=== PATIENT | male | born 1955 | race Caucasian/White ===

== ENCOUNTER → 2016-07-23 | Outpatient (CLI) | payer BC ==
[~2016-07-23] MED LIST: ASPI81TA28 PO; CRS10 PO; FLUO20CA35 PO; GLC500 PO; INSDGI SC; LISI-461 PO; MCR5 PO; MISC1CAP60 PO; MULTTAB58 PO; OFLO0.3S OPL; ZNTT/150 PO
[2016-07-23 14:22] LABS: ALT/SGPT 78 U/L (12-78); AST/SGOT 32 U/L (15-37); BLOOD UREA NITROGEN 25 mg/dl (7-18); BUN/CREATININE RATIO 19.1 (10-20); CALCIUM 9.7 mg/dl (8.5-10.1); CARBON DIOXIDE 22 mmol/L (21-32); CHLORIDE 107 mmol/L (98-107); CHOLESTEROL 168 mg/dl (0-200); GLUCOSE 148 mg/dl (70-99); POTASSIUM 4.1 mmol/L (3.5-5.1); SODIUM 141 mmol/L (136-145); TRIGLYCERIDES 345 mg/dl (0-150); VERY LOW DENSITY LIPOPROT CALC 69 mg/dl
[2016-07-23 14:24] LABS: ALB/GLOB RATIO 1.1 (0.9-2); ALKALINE PHOSPHATASE 60 U/L (45-117); CHOLESTEROL/HDL RATIO 4.8; HDL CHOLESTEROL 35 mg/dl
[2016-07-23 14:35] LABS: ESTIMATED AVERAGE GLUCOSE 163 mg/dl; HA1C FLAG Normal (Normal)
== END | disposition home or self-care (01) ==
LOC: C.LABSPEC 13:33
PROVIDERS: ATTEND Internal Medicine
DX: E11.65 Type 2 diabetes mellitus with hyperglycemia (principal); I10 Essential (primary) hypertension; E78.5 Hyperlipidemia, unspecified; E66.09 Other obesity due to excess calories

== ENCOUNTER → 2016-11-15 | Outpatient (CLI) | payer BC | END | disposition home or self-care (01) | LOC: C.LAB 13:34 | PROVIDERS: ATTEND Urology | DX: R97.20 Elevated prostate specific antigen [PSA] (principal); N40.0 Benign prostatic hyperplasia without lower urinary tract symptoms ==

== ENCOUNTER → 2016-11-25 | Outpatient (CLI) | payer BC ==
[2016-11-25 14:07] LABS: ESTIMATED AVERAGE GLUCOSE 148 mg/dl; HA1C FLAG Normal (Normal)
[2016-11-25 14:20] LABS: BLOOD UREA NITROGEN 23 mg/dl (7-18); BUN/CREATININE RATIO 17.4 (10-20); CARBON DIOXIDE 24 mmol/L (21-32); CHLORIDE 106 mmol/L (98-107); CHOLESTEROL 148 mg/dl (0-200); CHOLESTEROL/HDL RATIO 4.6; GLUCOSE 159 mg/dl (70-99); HDL CHOLESTEROL 32 mg/dl; SODIUM 140 mmol/L (136-145); TRIGLYCERIDES 264 mg/dl (0-150); VERY LOW DENSITY LIPOPROT CALC 53 mg/dl
[2016-11-25 15:07] LABS: CALCIUM 9.7 mg/dl (8.5-10.1)
== END | disposition home or self-care (01) ==
LOC: C.LABSPEC 12:33
PROVIDERS: ATTEND Internal Medicine
DX: E11.65 Type 2 diabetes mellitus with hyperglycemia (principal); I10 Essential (primary) hypertension; E78.5 Hyperlipidemia, unspecified

== ENCOUNTER → 2017-03-31 | Outpatient (CLI) | payer BC ==
[2017-03-31 13:27] LABS: ESTIMATED AVERAGE GLUCOSE 140 mg/dl; HA1C FLAG Normal (Normal)
[2017-03-31 13:45] LABS: ALT/SGPT 38 U/L (12-78); AST/SGOT 21 U/L (15-37); BLOOD UREA NITROGEN 31 mg/dl (7-18); BUN/CREATININE RATIO 22.2 (10-20); CALCIUM 10.2 mg/dl (8.5-10.1); CARBON DIOXIDE 23 mmol/L (21-32); CHLORIDE 109 mmol/L (98-107); CHOLESTEROL 142 mg/dl (0-200); GLUCOSE 70 mg/dl (70-99); POTASSIUM 3.7 mmol/L (3.5-5.1); SODIUM 142 mmol/L (136-145)
[2017-03-31 13:48] LABS: ALKALINE PHOSPHATASE 65 U/L (45-117); CHOLESTEROL/HDL RATIO 4.3; HDL CHOLESTEROL 33 mg/dl; TRIGLYCERIDES 253 mg/dl (0-150); VERY LOW DENSITY LIPOPROT CALC 51 mg/dl
== END | disposition home or self-care (01) ==
LOC: C.LABSPEC 12:19
PROVIDERS: ATTEND Internal Medicine
DX: Z00.00 Encounter for general adult medical examination without abnormal findings (principal); E11.65 Type 2 diabetes mellitus with hyperglycemia; E66.09 Other obesity due to excess calories; I10 Essential (primary) hypertension; E78.5 Hyperlipidemia, unspecified

== ENCOUNTER → 2017-04-30 | Outpatient (CLI) | payer BC | END | disposition home or self-care (01) | LOC: C.LABSPEC 12:29 | PROVIDERS: ATTEND Internal Medicine | DX: Z12.11 Encounter for screening for malignant neoplasm of colon (principal) ==

== ENCOUNTER → 2017-08-01 | Outpatient (CLI) | payer BC ==
[2017-08-01 14:14] LABS: BLOOD UREA NITROGEN 27 mg/dl (7-18); CALCIUM 9.7 mg/dl (8.5-10.1); CARBON DIOXIDE 25 mmol/L (21-32); CHOLESTEROL 144 mg/dl (0-200); CREATININE 1.36 mg/dl (0.60-1.40); GLUCOSE 65 mg/dl (70-99); POTASSIUM 3.7 mmol/L (3.5-5.1); SODIUM 138 mmol/L (136-145)
[2017-08-01 14:17] LABS: LDL CHOLESTEROL (DIRECT) 92 mg/dl
[2017-08-01 14:24] LABS: CREATININE RANDOM URINE 71.9 mg/dl
[2017-08-01 14:27] LABS: HEMOGLOBIN A1C 6.3 % (4.5-5.6)
== END | disposition home or self-care (01) ==
LOC: C.LABSPEC 13:20
PROVIDERS: ATTEND Internal Medicine
DX: E78.5 Hyperlipidemia, unspecified (principal); E11.9 Type 2 diabetes mellitus without complications; I10 Essential (primary) hypertension

== ENCOUNTER → 2018-02-11 | Outpatient (CLI) | payer BC ==
[~2018-02-11] MED LIST changes: +PERFLUTREN LIPID MICROSPHERE (DEFINITY) IV ONE; +RANI150T85 PO; -ZNTT/150 PO
--- NOTE | 2018-02-12 20:27 | EXERCISE STRESS ECHO ---
*NOTICE TO RECEIVING CONSTITUTION PARTY AGENCY This information is strictly Confidential and protected under [place] law. [place] law prohibits you from making any further disclosure of this information unless further disclosure is expressly permitted by the written consent of the person to whom it pertains or is authorized by law. A general authorization for the release of medical or other information is not sufficient for this purpose. Hospital accepts no responsibility if the information is made available to any other person, INCLUDING THE PATIENT. Interpretation Summary * Name: VASILE DAVIDSON Study Date: 02/11/2018 09:27 AM BP: 136/71 mmHg * Patient Location: [facility] HR: 80 * : 1955 (M/d/yyyy) Gender: Male Height: 67 in * Age: 62 yrs Ethnicity: [place] Weight: 212 lb * Ordering Physician: Rigoberto Damon * Referring Physician: Rigoberto Damon * Performed By: Cha Mckeon RCS * * Reason For Study: ABNORMAL EKG / LEFT SIDED CHEST PAIN * BSA: 2.1 m2 * -- Conclusions -- * Stress Echo: * 1. Poor quality stress imaging. There were no new definite wall motion abnormalities, but cannot rule out ischemia due to image quality. * 2. Abnormal exercise stress ECG at 85% MPHR with [address]-depression in leads II and aVF. * 3. Appropriate blood pressure response to exercise. * 4. No arrhythmia. * 5. There was no reported chest pain. * 6. Fair exercise tolerance. * Echo: * 1. Grossly normal left ventricular size with grossly normal systolic function. Estimated EF 55-60%. Cannot rule out wall motion abnormalities, but no visualized wall motion abnormalities noted. No significant left ventricular hypertrophy. No significant diastolic dysfunction suggested. * 2. No significant valvular abnormalities visualized. * 3. Technically difficult study with poor image quality. Procedure Details * ECHOEX, CPT #[id number] * ECHO COLOR FLOW, CPT #[id number] * ECHO DOPPLER, CPT #[id number] * The study was technically difficult with many images being suboptimal in quality. * A contrast injection of Definity was performed to improve assessment of LV function. * Contrast was injected into an intravenous site in the left arm. * One vial of Definity ultrasound contrast was diluted in normal saline to a total volume of 10 ml. A total of '5' ml of solution was administered during imaging. * Lot # [id number] of Definity utilized for procedure. * Expiration date DEC 23. * The attending nurse who injected the contrast agent was MAXIME Lugo RN. Left Ventricle * Grossly normal left ventricular size with grossly normal systolic function. Estimated EF 55-60%. Cannot rule out wall motion abnormalities, but no visualized wall motion abnormalities noted. No significant left ventricular hypertrophy. No significant diastolic dysfunction suggested. * There are no new wall motion abnormalities in visualized delgado following exercise. LV systolic function did appear to improve following exercise. Right Ventricle * The right ventricle is normal in size and function. * The right ventricular systolic function is normal as assessed by tricuspid annular plane systolic excursion (TAPSE) (normal >1.5 cm). Atria * The left atrial size is normal. * Right atrial size is normal. Mitral Valve * The mitral valve is grossly normal. * There is no mitral valve stenosis. * Significant mitral regurgitation is absent. Tricuspid Valve * The tricuspid valve is not well visualized. * There is no tricuspid stenosis. * Significant tricuspid regurgitation is absent. Aortic Valve * The aortic valve is not well visualized. * No hemodynamically significant valvular aortic stenosis. * There is no significant aortic regurgitation. Pulmonic Valve * The pulmonary valve is inadequately visualized, but the Doppler data is adequate for interpretation. * There is no significant pulmonary regurgitation. Great Vessels * The aortic root is normal size. * Ascending aorta of normal dimension * IVC normal in size and inspiratory collapse. Normal hepatic venous flow pattern. Pericardium * There is no pericardial effusion. Stress Parameters * NSR 84 bpm. PVC. * [address] depression in leads II and aVF noted in recovery. No arrhythmia. * The stress portion of this study was personally supervised by the undersigned interpreting physician. * Rest heart rate was '80' BPM. * Rest blood pressure was '136/71' * Maximum heart rate achieved was 134 bpm. * Maximum heart rate was 85 % of maximum age-predicted heart rate. * Maximum blood pressure was '161/61' * Total exercise time was '05:59' * Maximum exercise MET level achieved was '7.00' METS * Maximum treadmill speed was '2.50' miles per hour. * Maximum treadmill elevation was '12.00'% grade. MMode 2D Measurements and Calculations IVSd 1.1 cm LVIDd 5.0 cm LVPWd 0.91 cm IVS/LVPW 1.2 EDV(Teich) 116.4 ml EDV(cubed) 122.5 ml LV mass(C)d 183.5 grams LV mass(C)dI 88.5 grams/m\S\2 Ao root diam 3.6 cm Ao root area 10.2 cm\S\2 LA dimension 3.7 cm asc Aorta Diam 3.2 cm LA/Ao 1.0 Doppler Measurements and Calculations MV E max paula 56.5 cm/sec MV A max paula 51.7 cm/sec MV E/A 1.1 MV P1/2t max paula 72.5 cm/sec MV P1/2t 47.2 msec MVA(P1/2t) 4.7 cm\S\2 MV dec slope 449.5 cm/sec\S\2 MV dec time 0.17 sec Ao V2 max 94.0 cm/sec Ao max PG 3.5 mmHg Ao max PG (full) 0.22 mmHg LV V1 max PG 3.3 mmHg LV V1 max 91.1 cm/sec PA V2 max 99.2 cm/sec PA max PG 3.9 mmHg
== END | disposition home or self-care (01) ==
LOC: C.CPL 09:37
PROVIDERS: ATTEND Internal Medicine
DX: R07.9 Chest pain, unspecified (principal); R94.31 Abnormal electrocardiogram [ECG] [EKG]

== ENCOUNTER → 2018-02-17 | Outpatient (CLI) | payer BC ==
[~2018-02-17] MED LIST changes: +HMLI7525 SC; +METO25TA4 PO; +NTRGSL4 SL; +OMEG10007 PO; -PERFLUTREN LIPID MICROSPHERE (DEFINITY) IV ONE; +ROSU40TA19 PO; +SILD1TAB11; +TADA10TA PO
[2018-02-17 14:45] LABS: BASO % 0.3 %; BASO ABS # 0.02 K/uL (0-0.2); EOS % 3.8 %; EOS ABS # 0.28 K/uL (0-0.5); HEMATOCRIT 41.8 % (42-52); HEMOGLOBIN 14.8 g/dL (14.0-18.0); IG# 0.02 K/uL (0.00-0.02); LYMPH ABS # 1.93 K/uL (1.2-3.4); MEAN CELL VOLUME 91.7 fL (80-100); MEAN CORPUSCULAR HEMOGLOBIN 32.5 pg (25-34); MEAN CORPUSCULAR HGB CONC 35.4 g/dl (32-36); MEAN PLATELET VOLUME 10.1 fL (7.4-10.4); MONO ABS # 0.67 K/uL (0.11-0.59); NEUT % 60.6 %; NEUT ABS # 4.51 K/uL (1.4-6.5); PLATELET COUNT 187 K/uL (130-400); RED CELL DISTRIBUTION WIDTH CV 13.2 % (11.5-14.5); RED CELL DISTRIBUTION WIDTH SD 43.7 fL (36.4-46.3); WHITE BLOOD COUNT 7.43 K/uL (4.8-10.8)
[2018-02-17 14:54] LABS: PTT PATIENT 26.8 SECONDS (21.0-31.0)
[2018-02-17 15:12] LABS: BLOOD UREA NITROGEN 23 mg/dl (7-18); CALCIUM 9.3 mg/dl (8.5-10.1); CARBON DIOXIDE 24 mmol/L (21-32); CREATININE 1.28 mg/dl (0.60-1.40); GLUCOSE 199 mg/dl (70-99); SODIUM 139 mmol/L (136-145)
== END | disposition home or self-care (01) ==
LOC: C.LAB1850 13:33
PROVIDERS: ATTEND Internal Medicine Interventional Cardiology
DX: I10 Essential (primary) hypertension (principal); E78.5 Hyperlipidemia, unspecified

== ENCOUNTER 2019-03-10 12:28 | Inpatient (IN) ==
--- NOTE | 2019-03-10 13:14 | XRay Report ---
XR chest 1V portable HISTORY: 63 years-old Male Sepsis acute sepsis COMPARISON: Chest radiograph 03/01/2019 TECHNIQUE: Portable AP view of the chest FINDINGS: Cardiac silhouette is enlarged, unchanged. Prior median sternotomy. Chronic left basilar opacities demonds ggest atelectasis/scarring. There are new patchy airspace opacities of the medial right lung base. Mi ld blunting of the costophrenic angles. No pneumothorax or overt pulmonary edema. Degenerative change s of the shoulders and spine. IMPRESSION: 1. Alveolar opacities of the medial right lung base are suspicious for pneumonia in the appropriate c linical setting. 2. Cardiomegaly without overt pulmonary edema. The above report was generated using voice recognition software. It may contain grammatical, syntax o r spelling errors. Electronically signed by: Remigio Snow M.D. 03/10/2019 1:13 PM
[2019-03-10] MEDS ORDERED: cefTRIAXone SODIUM 2,000 MG/70 ML BAG IV STA (13:24)
[2019-03-10] MEDS ORDERED: SODIUM CHLORIDE 0.9% 1000ML 1,000 ML IV ONE (13:24)
[2019-03-10 13:42] LABS: Basophils # (auto) 0.02 K/uL (0-0.2); Basophils % (auto) 0.2 %; Eosinophils # (auto) 0.37 K/uL (0-0.5); Hematocrit (blood only) 41.6 % (42-52); Immature Granulocytes # (auto) 0.02 K/uL (0.00-0.02); Immature Granulocytes % (auto) 0.2 %; Lymphocytes # (auto) 1.43 K/uL (1.2-3.4); Lymphocytes % (auto) 15.4 %; Mean Corpuscular Hgb Conc 36.1 g/dL (32-36); Mean Corpuscular Volume 91.8 fL (80-100); Mean Platelet Volume 9.3 fL (7.4-10.4); Monocytes # (auto) 1.14 K/uL (0.11-0.59); Monocytes % (auto) 12.3 %; Neutrophils # (auto) 6.31 K/uL (1.4-6.5); Neutrophils % (auto) 67.9 %; Platelet Count 219 K/uL (130-400); RDW Coefficient of Variation 13.4 % (11.5-14.5); RDW Standard Deviation 44.5 fL (36.4-46.3); Red Blood Count 4.53 M/uL (4.7-6.1); White Blood Count 9.29 K/uL (4.8-10.8)
[2019-03-10 13:53] LABS: INR 1.1 (0.9-1.1); Partial Thromboplastin Ratio 1.1; Partial Thromboplastin Time 28.9 Seconds (21.0-31.0); Prothrombin Time 10.9 Seconds (9.0-12.0)
[2019-03-10 14:11] LABS: Albumin Level 3.1 gm/dl (3.4-5.0); BUN Creatinine Ratio 23.2 (10-20); C Reactive Protein 15.4 mg/dl (0-0.29); Calcium 9.3 mg/dl (8.5-10.1); Creatinine Clr Calc Pharmacy 53.4 ml/min; Est GFR (African American) 55.8; Est GFR (Non-African American) 48.2; Magnesium 2.4 mg/dl (1.8-2.4)
[2019-03-10 14:13] LABS: Albumin Globulin Ratio 0.6 (0.9-2); Bilirubin,Total 0.5 mg/dl (0.2-1); Globulin 4.9 gm/dl (2.5-4.0)
[2019-03-10] MEDS ORDERED: ACETAMINOPHEN 500 MG TAB PO STA (15:47)
[2019-03-10 16:01] LABS: Appearance Urine Clear (Clear); Bacteria Urine Automated Negative (Negative); Bilirubin Urine Negative (Negative); Blood Urine 1+ (Negative); Color Urine Yellow; Glucose Urine UA Negative (Negative); Ketones Urine Negative (Negative); Leukocyte Esterase Urine Negative (Negative); Nitrite Urine Negative (Negative); Protein Urine 1+ (Negative); RBC Urine Automated 0-4 /hpf (0-4); Specific Gravity Urine 1.018 (1.000-1.030); Urobilinogen Urine Negative (Negative)
--- NOTE | 2019-03-10 17:34 | Emergency Department Note ---
Entered by Sal Dumont acting as a scribe for History of Present Illness General Chief complaint: Referred by Doctor Stated complaint: TESTS DONE LAST NIGHT TOLD TO COME BACK BY DOC Source: patient History of Present Illness Onset (ago): day(s) Location: left and right Pain Consistency: + other (episode) Quality: + other (abnormalities in blood cultures and urine sample obtained by the patient's PCP) Associated symptoms: + cough (slight), + fever/chills and + other (+shakes; +sweats; +diarrhea; -leg swelling/pain; -abdominal pain); no rash The patient is a 63 year old male who presents to the Emergency Room with complaints of an episode of abnormalities in blood cultures and urine sample obtained by the patient's PCP - Dr. Zapata. The patient states the tests were ordered because the patient has been experiencing shakes, sweats, and a fever over the last 5 days. The patient states his fever was around 101.7 over the weekend, and the patient notes his temperature was around 100 when visiting his doctor yesterday. The patient also notes of a slight cough and diarrhea. The patient states his last bowel movement was today, and he notes it was loose. The patient denies a rash, recent travel, cut on legs, leg swelling, or abdominal pain. The patient denies having dental work done recently. The patient states he took 2 Tylenol this morning for the fever. The patient has a right eyelid droop that the patient states is a result from a stroke that he had on February 14. The patient notes history of diabetes, lung cancer, and quadruple bypass surgery. The patient denies being allergic to antibiotics. The patient notes having a hernia, but he states it has not been acting up. Home Medications Home Medications Medication Instructions Recorded Confirmed Type fluoxetine 10 mg PO QAM #0 01/19/06 03/10/19 History ranitidine HCl [Zantac] 150 mg PO BID #0 01/19/06 03/10/19 History aspirin 81 mg PO QAM #0 08/08/14 03/10/19 History lisinopril 10 mg PO QAM #0 08/08/14 03/10/19 History multivitamin 1 tab PO QAM #0 tab 08/08/14 03/10/19 History insulin lispro protamin-lispro 60 unit SUBCUT BID #0 vial 02/20/18 03/10/19 History [Humalog Mix 75-25 KwikPen] acetaminophen 1,000 mg PO Q6H PRN 03/01/19 03/10/19 History albuterol sulfate [ProAir HFA] 2 puff INHALATION QID PRN 03/01/19 03/10/19 History budesonide 2 ml IRRIGATION DIRECTED 03/01/19 03/10/19 History clopidogrel 75 mg PO DAILY 03/01/19 03/10/19 History glenn (Zingiber officinalis) 250 mg PO DAILY 03/01/19 03/10/19 History lorazepam 0.5 mg PO DAILY PRN 03/01/19 03/10/19 History losartan 25 mg PO DAILY 03/01/19 03/10/19 History metoprolol tartrate 25 mg PO BID 03/01/19 03/10/19 History nitroglycerin [Nitrostat] 0.4 mg SUBLINGUAL UD PRN 03/01/19 03/10/19 History rosuvastatin 40 mg PO DAILY 03/01/19 03/10/19 History tramadol 50 mg PO Q6H PRN 03/01/19 03/10/19 History vitamins A,C,Y-csuh-lhcesc 1 tab PO BID 03/01/19 03/10/19 History [PreserVision AREDS] Allergies Allergy/AdvReac Type Severity Reaction Status Date / Time No Known Allergies AdvReac U Unverified 03/10/19 13:03 Past Med/Surg History Medical History No significant family history No significant past medical history Social History Feels Safe at Home: Yes Smoking Status: Former smoker Review of Systems See HPI for pertinent positives & negatives. and A total of 10 systems reviewed and were otherwise negative Physical Exam Vital Signs Vital Signs - 24 hr 03/10/19 12:31 03/10/19 12:50 03/10/19 13:35 Temperature 36.7 C Temperature Source Oral Sepsis Action Taken by Nursing No Action Required Pulse Rate 77 Pulse Rate [Right Finger] 72 Pulse Rate from SpO2 Sensor Respiratory Rate 20 21 Respiratory Effort / Characteristics Non-Labored Non-Labored Spontaneous Respiratory Depth Normal Normal Respiratory Pattern Regular Regular Blood Pressure 107/70 Blood Pressure [Left Arm] 118/62 Blood Pressure [Left Thigh] 103/61 Blood Pressure Mean 82 Blood Pressure Mean [Left Arm] 80 Blood Pressure Mean [Left Thigh] 75 Blood Pressure Position [Left Thigh] Sitting Pulse Oximetry 92 93 Oxygen Delivery Method Room Air Room Air 03/10/19 13:45 03/10/19 13:56 03/10/19 14:00 Temperature Temperature Source Sepsis Action Taken by Nursing Pulse Rate 74 72 77 Pulse Rate [Right Finger] Pulse Rate from SpO2 Sensor 74 72 77 Respiratory Rate 21 23 22 Respiratory Effort / Characteristics Respiratory Depth Respiratory Pattern Blood Pressure 103/61 103/51 L Blood Pressure [Left Arm] Blood Pressure [Left Thigh] Blood Pressure Mean 75 68 Blood Pressure Mean [Left Arm] Blood Pressure Mean [Left Thigh] Blood Pressure Position [Left Thigh] Pulse Oximetry 95 94 93 Oxygen Delivery Method 03/10/19 14:15 03/10/19 14:30 03/10/19 14:45 Temperature Temperature Source Sepsis Action Taken by Nursing Pulse Rate 73 76 74 Pulse Rate [Right Finger] Pulse Rate from SpO2 Sensor 73 75 74 Respiratory Rate 20 17 12 Respiratory Effort / Characteristics Respiratory Depth Respiratory Pattern Blood Pressure 123/72 108/74 121/76 Blood Pressure [Left Arm] Blood Pressure [Left Thigh] Blood Pressure Mean 89 85 91 Blood Pressure Mean [Left Arm] Blood Pressure Mean [Left Thigh] Blood Pressure Position [Left Thigh] Pulse Oximetry 93 90 93 Oxygen Delivery Method 03/10/19 15:00 03/10/19 15:15 03/10/19 15:30 Temperature Temperature Source Sepsis Action Taken by Nursing Pulse Rate 72 73 80 Pulse Rate [Right Finger] Pulse Rate from SpO2 Sensor 72 73 78 Respiratory Rate 13 18 16 Respiratory Effort / Characteristics Respiratory Depth Respiratory Pattern Blood Pressure 127/80 105/87 123/76 Blood Pressure [Left Arm] Blood Pressure [Left Thigh] Blood Pressure Mean 95 93 91 Blood Pressure Mean [Left Arm] Blood Pressure Mean [Left Thigh] Blood Pressure Position [Left Thigh] Pulse Oximetry 95 93 94 Oxygen Delivery Method GENERAL: Patient is awake, alert, and in no acute distress.Patient is resting comfortably and showing no signs of anxiety EYES: The conjunctivae are clear. The pupils are round and reactive. EARS, NOSE, MOUTH AND THROAT: The nose is without any evidence of any deformity. Mucous membranes are moist.Tongue is midline NECK: The neck is nontender and supple. RESPIRATORY: Normal respiratory effort is noted. There is no evidence of wheezing rhonchi or rales to auscultation. CARDIOVASCULAR: Regular rate and rhythm noted. There no murmurs rubs or gallops normal S1 normal S2 GASTROINTESTINAL: The abdomen is soft. Bowel sounds are present in all quadrants. Abdomen is nontender. MUSCULOSKELETAL/EXTREMITIES: There is no evidence of gross deformity. Full range of motion is noted in the hips and shoulders. SKIN: There is no obvious evidence of any rash. There are no petechiae, pallor or cyanosis noted. Trace pedal edema bilaterally. NEUROLOGIC: Patient is awake alert and oriented x3. Ptosis noted of right eye. Course 1250: Past medical records reviewed. The patient was evaluated in room C5. A complete history and physical exam was performed. 1335: I reviewed the patient's case [facility]. Dr. Garber will evaluate the patient for further management. Consultations Consultation #1: I reviewed the patient's case with [facility]. Dr. Garber will evaluate the patient for further management. Time: 13:35 Administered Medications Discontinued Medications Acetaminophen (Tylenol) 1,000 mg PO NOW STA Stop: 03/10/19 15:48 Last Admin: 03/10/19 16:00 Dose: 1,000 mg Documented by: [id number] Sodium Chloride (Nss 1000ml) 1,000 mls @ 999 mls/hr IV .Q1H1M ONE Stop: 03/10/19 14:24 Last Infusion: 03/10/19 15:45 Dose: 0 mls/hr Documented by: [id number] Admin: 03/10/19 13:44 Dose: 999 mls/hr Documented by: [id number] Ceftriaxone Sodium (Rocephin) 2,000 mg in 70 mls @ 140 mls/hr IV NOW STA Stop: 03/10/19 13:53 Last Infusion: 03/10/19 15:45 Dose: 0 mls/hr Documented by: [id number] Admin: 03/10/19 13:44 Dose: 140 mls/hr Documented by: [id number] Medical Decision Making Differential Diagnosis Differential diagnosis: Etiologies such as viral syndrome, otitis, pharyngitis, pneumonia, influenza, meningitis, urinary tract infection, sepsis, bacteremia, as well as others were entertained. Medical Records Attestation: I reviewed the patient's medical records. Home Medications Current Medication List: was personally reviewed by me Laboratory Data Attestation: I reviewed the patient's lab results. Result diagrams: 03/10/19 13:24 03/10/19 13:24 Lab Results 03/10/19 03/10/19 03/10/19 Range/Units 13:24 13:24 13:24 WBC 9.29 (4.8-10.8) K/uL RBC 4.53 L (4.7-6.1) M/uL Hgb 15.0 (14.0-18.0) g/dL Hct 41.6 L (42-52) % MCV 91.8 (80-100) fL MCH 33.1 (25-34) pg MCHC 36.1 H (32-36) g/dL RDW Std Deviation 44.5 (36.4-46.3) fL RDW Coeff of Braden 13.4 (11.5-14.5) % Plt Count 219 (130-400) K/uL MPV 9.3 (7.4-10.4) fL Immature Gran % (Auto) 0.2 % Neut % (Auto) 67.9 % Lymph % (Auto) 15.4 % Sussex % (Auto) 12.3 % Eos % (Auto) 4.0 % Baso % (Auto) 0.2 % Immature Gran # (Auto) 0.02 (0.00-0.02) K/uL Neut # (Auto) 6.31 (1.4-6.5) K/uL Lymph # (Auto) 1.43 (1.2-3.4) K/uL Sussex # (Auto) 1.14 H (0.11-0.59) K/uL Eos # (Auto) 0.37 (0-0.5) K/uL Baso # (Auto) 0.02 (0-0.2) K/uL ESR 69 H (0-14) mm/hr PT 10.9 (9.0-12.0) Seconds INR 1.1 (0.9-1.1) APTT 28.9 (21.0-31.0) Seconds PTT Ratio 1.1 Sodium (136-145) mmol/L Potassium (3.5-5.1) mmol/L Chloride (98-107) mmol/L Carbon Dioxide (21-32) mmol/L Anion Gap (3-11) BUN (7-18) mg/dl Creatinine (0.6-1.4) mg/dl Est Cr Clr Drug Dosing ml/min Est GFR ( Amer) Est GFR (Non-Af Amer) BUN/Creatinine Ratio (10-20) Glucose (70-99) mg/dl Lactate (0.4-2.0) mmol/L Calcium (8.5-10.1) mg/dl Magnesium (1.8-2.4) mg/dl Total Bilirubin (0.2-1) mg/dl AST (15-37) U/L ALT (12-78) U/L Alkaline Phosphatase (45-117) U/L C-Reactive Protein (0-0.29) mg/dl Total Protein (6.4-8.2) gm/dl Albumin (3.4-5.0) gm/dl Globulin (2.5-4.0) gm/dl Albumin/Globulin Ratio (0.9-2) Procalcitonin (0-0.5) ng/ml Urine Color Urine Appearance (Clear) Urine pH (4.5-7.5) Ur Specific Rainbow (1.000-1.030) Urine Protein (Negative) Urine Glucose (UA) (Negative) Urine Ketones (Negative) Urine Blood (Negative) Urine Nitrite (Negative) Urine Bilirubin (Negative) Urine Urobilinogen (Negative) Ur Leukocyte Esterase (Negative) Urine WBC (Auto) (0-5) /hpf Urine RBC (Auto) (0-4) /hpf U Hyaline Cast (Auto) (0-5) /lpf U Epithel Cells (Auto) (0-5) /lpf Urine Bacteria (Auto) (Negative) 03/10/19 03/10/19 03/10/19 Range/Units 13:24 13:24 13:24 WBC (4.8-10.8) K/uL RBC (4.7-6.1) M/uL Hgb (14.0-18.0) g/dL Hct (42-52) % MCV (80-100) fL MCH (25-34) pg MCHC (32-36) g/dL RDW Std Deviation (36.4-46.3) fL RDW Coeff of Braden (11.5-14.5) % Plt Count (130-400) K/uL MPV (7.4-10.4) fL Immature Gran % (Auto) % Neut % (Auto) % Lymph % (Auto) % [place] % (Auto) % Eos % (Auto) % Baso % (Auto) % Immature Gran # (Auto) (0.00-0.02) K/uL Neut # (Auto) (1.4-6.5) K/uL Lymph # (Auto) (1.2-3.4) K/uL [place] # (Auto) (0.11-0.59) K/uL Eos # (Auto) (0-0.5) K/uL Baso # (Auto) (0-0.2) K/uL ESR (0-14) mm/hr PT (9.0-12.0) Seconds INR (0.9-1.1) APTT (21.0-31.0) Seconds PTT Ratio Sodium 138 (136-145) mmol/L Potassium 4.0 (3.5-5.1) mmol/L Chloride 105 (98-107) mmol/L Carbon Dioxide 26 (21-32) mmol/L Anion Gap 7.0 (3-11) BUN 35 H (7-18) mg/dl Creatinine 1.50 H (0.6-1.4) mg/dl Est Cr Clr Drug Dosing 53.4 ml/min Est GFR ( Amer) 55.8 Est GFR (Non-Af Amer) 48.2 BUN/Creatinine Ratio 23.2 H (10-20) Glucose 156 H (70-99) mg/dl Lactate 1.1 (0.4-2.0) mmol/L Calcium 9.3 (8.5-10.1) mg/dl Magnesium 2.4 (1.8-2.4) mg/dl Total Bilirubin 0.5 (0.2-1) mg/dl AST 31 (15-37) U/L ALT 39 (12-78) U/L Alkaline Phosphatase 90 (45-117) U/L C-Reactive Protein 15.40 H (0-0.29) mg/dl Total Protein 8.0 (6.4-8.2) gm/dl Albumin 3.1 L (3.4-5.0) gm/dl Globulin 4.9 H (2.5-4.0) gm/dl Albumin/Globulin Ratio 0.6 L (0.9-2) Procalcitonin 0.09 (0-0.5) ng/ml Urine Color Urine Appearance (Clear) Urine pH (4.5-7.5) Ur Specific Rainbow (1.000-1.030) Urine Protein (Negative) Urine Glucose (UA) (Negative) Urine Ketones (Negative) Urine Blood (Negative) Urine Nitrite (Negative) Urine Bilirubin (Negative) Urine Urobilinogen (Negative) Ur Leukocyte Esterase (Negative) Urine WBC (Auto) (0-5) /hpf Urine RBC (Auto) (0-4) /hpf U Hyaline Cast (Auto) (0-5) /lpf U Epithel Cells (Auto) (0-5) /lpf Urine Bacteria (Auto) (Negative) 03/10/19 Range/Units 15:45 WBC (4.8-10.8) K/uL RBC (4.7-6.1) M/uL Hgb (14.0-18.0) g/dL Hct (42-52) % MCV (80-100) fL MCH (25-34) pg MCHC (32-36) g/dL RDW Std Deviation (36.4-46.3) fL RDW Coeff of Braden (11.5-14.5) % Plt Count (130-400) K/uL MPV (7.4-10.4) fL Immature Gran % (Auto) % Neut % (Auto) % Lymph % (Auto) % [place] % (Auto) % Eos % (Auto) % Baso % (Auto) % Immature Gran # (Auto) (0.00-0.02) K/uL Neut # (Auto) (1.4-6.5) K/uL Lymph # (Auto) (1.2-3.4) K/uL Sussex # (Auto) (0.11-0.59) K/uL Eos # (Auto) (0-0.5) K/uL Baso # (Auto) (0-0.2) K/uL ESR (0-14) mm/hr PT (9.0-12.0) Seconds INR (0.9-1.1) APTT (21.0-31.0) Seconds PTT Ratio Sodium (136-145) mmol/L Potassium (3.5-5.1) mmol/L Chloride (98-107) mmol/L Carbon Dioxide (21-32) mmol/L Anion Gap (3-11) BUN (7-18) mg/dl Creatinine (0.6-1.4) mg/dl Est Cr Clr Drug Dosing ml/min Est GFR ( Amer) Est GFR (Non-Af Amer) BUN/Creatinine Ratio (10-20) Glucose (70-99) mg/dl Lactate (0.4-2.0) mmol/L Calcium (8.5-10.1) mg/dl Magnesium (1.8-2.4) mg/dl Total Bilirubin (0.2-1) mg/dl AST (15-37) U/L ALT (12-78) U/L Alkaline Phosphatase (45-117) U/L C-Reactive Protein (0-0.29) mg/dl Total Protein (6.4-8.2) gm/dl Albumin (3.4-5.0) gm/dl Globulin (2.5-4.0) gm/dl Albumin/Globulin Ratio (0.9-2) Procalcitonin (0-0.5) ng/ml Urine Color Yellow Urine Appearance Clear (Clear) Urine pH 5.0 (4.5-7.5) Ur Specific Rainbow 1.018 (1.000-1.030) Urine Protein 1+ H (Negative) Urine Glucose (UA) Negative (Negative) Urine Ketones Negative (Negative) Urine Blood 1+ H (Negative) Urine Nitrite Negative (Negative) Urine Bilirubin Negative (Negative) Urine Urobilinogen Negative (Negative) Ur Leukocyte Esterase Negative (Negative) Urine WBC (Auto) 1-5 (0-5) /hpf Urine RBC (Auto) 0-4 (0-4) /hpf U Hyaline Cast (Auto) 1-5 (0-5) /lpf U Epithel Cells (Auto) 5-10 H (0-5) /lpf Urine Bacteria (Auto) Negative (Negative) Imaging Data Radiologist's Impression: Radiology results as stated below per my review and the radiologist's interpretation: XR chest 1V portable HISTORY: 63 years-old Male Sepsis acute sepsis COMPARISON: Chest radiograph 03/01/2019 TECHNIQUE: Portable AP view of the chest FINDINGS: Cardiac silhouette is enlarged, unchanged. Prior median sternotomy. Chronic left basilar opacities suggest atelectasis/scarring. There are new patchy airspace opacities of the medial right lung base. Mild blunting of the costophrenic angles. No pneumothorax or overt pulmonary edema. Degenerative changes of the shoulders and spine. IMPRESSION: 1. Alveolar opacities of the medial right lung base are suspicious for pneumonia in the appropriate clinical setting. 2. Cardiomegaly without overt pulmonary edema. The above report was generated using voice recognition software. It may contain grammatical, syntax or spelling errors. Electronically signed by: Remigio Snow M.D. 03/10/2019 1:13 PM Blood Pressure Blood Pressure Findings: Normal blood pressure MDM Narrative The patient is a 63-year-old male who presented to the emergency department for an evaluation of abnormal laboratory studies. The patient was seen by his primary care physician as an outpatient. He been experiencing fever and chills and generalized malaise recently. He had no definite source for an infection on physical exam and had laboratory studies done as an outpatient. He was called by his primary care physician who is very involved in his care and was told to go to the emergency department because of a positive blood culture. The patient's family doctor did call our emergency department and gave us some information before the patient arrived. The patient had a blood culture that was positive for gram-positive cocci in chains. The patient did complain of a cough in the emergency department. I discussed the patient's laboratory and radiographic studies with him. Repeat blood cultures were obtained and the patient was started on IV antibiotics. The patient's chest x-ray does appear to be consistent with a pneumonia and I think this would explain the patient's bacteremia. I discussed the patient's laboratory and radiographic studies with the on-call [facility] hospitalist team. They have agreed to evaluate the patient in the emergency department for further management disposition. Impression & Plan Pneumonia, Bacteremia Discharge Plan Visit Data Chief Complaint: Referred by Doctor Stated Complaint: TESTS DONE LAST NIGHT TOLD TO COME BACK BY DOC ED Provider: Cristobal Fofana Discharge Problem: Pneumonia, Bacteremia Patient Disposition: Being Evaluated by Hospitalist Forms Stand Alone Forms: My [facility] [place] [employer] Prescriptions Prescriptions: No Action fluoxetine 10 mg Tablet 10 mg PO QAM Qty: 0 RF: 0 ranitidine HCl [Zantac] 150 mg Tablet 150 mg PO BID Qty: 0 RF: 0 multivitamin Tablet 1 tab PO QAM Qty: 0 RF: 0 aspirin 81 mg Tablet,Delayed Release (Dr/Ec) 81 mg PO QAM Qty: 0 RF: 0 lisinopril 10 mg Tablet 10 mg PO QAM Qty: 0 RF: 0 Humalog Mix 75-25 KwikPen 100 unit/mL (75-25) Insulin Pen 60 unit SUBCUT BID Qty: 0 RF: 0 clopidogrel 75 mg tablet 75 mg PO DAILY RF: 0 acetaminophen 500 mg Tablet 1,000 mg PO Q6H PRN (Reason: Pain) RF: 0 lorazepam 0.5 mg tablet 0.5 mg PO DAILY PRN (Reason: Anxiety) RF: 0 glenn (Zingiber officinalis) 250 mg Capsule 250 mg PO DAILY RF: 0 losartan 25 mg tablet 25 mg PO DAILY RF: 0 budesonide 1 mg/2 mL suspension for nebulization 2 ml irrigation DIRECTED RF: 0 PreserVision AREDS [id number] Tablet 1 tab PO BID RF: 0 tramadol 50 mg Tablet 50 mg PO Q6H PRN (Reason: Pain) RF: 0 nitroglycerin [Nitrostat] 0.4 mg Tablet, Sublingual 0.4 mg sublingual UD PRN (Reason: Chest Pain) RF: 0 albuterol sulfate [ProAir HFA] 90 mcg/actuation HFA aerosol inhaler 2 puff inhalation QID PRN (Reason: Wheezing) RF: 0 rosuvastatin 40 mg Tablet 40 mg PO DAILY RF: 0 metoprolol tartrate 25 mg tablet 25 mg PO BID RF: 0 Referrals Referrals: Rigoberto Bhatt MD [Primary Care Provider] - Discharge Problem: Pneumonia Qualifiers: Pneumonia type: due to unspecified organism Laterality: unspecified laterality Lung location: unspecified part of lung Qualified Code(s): J18.9 - Pneumonia, unspecified organism The scribe's documentation has been prepared under my direction and personally reviewed by me in its entirety. I confirm that the note above accurately reflects all work, treatment, procedures, and medical decision making performed by me.
[2019-03-10] MEDS ORDERED: POLYETHYLENE (MIRALAX) 17 GM PACK PO PRN (18:56)
[2019-03-10] MEDS ORDERED: NITROGLYCERIN SL 0.4 MG/TAB TAB SL PRN (18:56)
[2019-03-10] MEDS ORDERED: ZOLPIDEM TARTRATE 5 MG TAB PO PRN (18:56)
[2019-03-10] MEDS ORDERED: ALBUTEROL HFA 8 GM INHALER INH PRN (18:56)
[2019-03-10] MEDS: SODIUM CHLORIDE 0.9% 1000ML 1,000 ML IV SCH (19:43)
[2019-03-10] MEDS ORDERED: GLUCOSE 10 TABS/TUBE PO PRN (19:46)
[2019-03-10] MEDS ORDERED: GLUCOSE 40% GEL 15 GM TUBE PO PRN (19:46)
[2019-03-10] MEDS ORDERED: GLUCAGON FOR INJ 1 MG VIAL SQ PRN (19:46)
[2019-03-10] MEDS ORDERED: DEXTROSE 50% 50 ML SYRINGE IV PRN (19:46)
[2019-03-10] MEDS ORDERED: CARBOHYDRATES FOR HYPOGLYCEMIA PO PRN (19:46)
[2019-03-10] MEDS ORDERED: PHARMACY GLYCEMIC MGMT CONSULT PRN (19:51)
[2019-03-10] MEDS ORDERED: AMPICILLIN/SULBACTAM SOD 3,000 MG in 0.9 % SODIUM CHLORIDE 100 ML IV SCH (20:00)
[2019-03-10] MEDS: metroNIDAZOLE 500 MG/100 ML BAG IV SCH (21:29)
[2019-03-10] MEDS: TRAMADOL HCL 50 MG TABLET PO PRN (21:32)
[2019-03-10] MEDS: METOPROLOL TARTRATE 25 MG TAB PO SCH (21:33)
[2019-03-10] MEDS ORDERED: INSULIN GLARGINE SOLOSTAR 100 UNITS/ML 3 ML PEN SC SCH (22:00)
[2019-03-10] MEDS: INSULIN ASPART 100 UNITS/ML 3 ML PEN SC SCH (22:07)
--- NOTE | 2019-03-10 22:17 | Pharmacy Report ---
Glycemic Control Consultation - Date of Service March 10, 2019 - Scope Scope: Glycemic Pharmacist consulted by Dr Garber on 03/10 for glycemic control and to write orders per [facility] inpatient glycemic control protocol - Objective Weight: 93.1 kg Accuchecks BSG (last 24hrs): 03/10/19 03/10/19 03/10/19 13:24 19:12 20:58 Glucose 156 H POC Glucose 71 96 Laboratory Data (last 24hrs): 03/10/19 13:24 Potassium 4.0 Carbon Dioxide 26 Anion Gap 7.0 Creatinine 1.50 H Est Cr Clr Drug Dosing 53.4 - Recent Pertinent Medications Outpatient Anti-diabetic Regimen: * Humalog Mix 75/25 60 units BID * A1c = 7.2 % 01/18/19 Risk Factors for Insulin Resistance: * Infection: on Rocephin/Flagyl for aspiration pneumonia/ presumed strep bacteremia * Diet: heart healthy -> changed to type 2 diabetes - Assessment & Plan Assessment & Plan: ASSESSMENT: * 63 y/o male admitted after culture results from yesterday showed gram positive cocci in chains. He is a type 2 diabetic, who uses mixed insulin as an outpatient. * Outpatient regimen is premixed basal/prandial insulin of Humalog Mix 75/25 insulin. * Pre-mixed insulin is difficult to titrate since it is already in a fixed distribution of basal:prandial insulin. Continuing pre-mixed insulin for admission typically lead to hypoglycemia d/t changing PO status but rapid acting insulin is unable to be held. * Home regimen will be held for admission per pharmacy consult. Will utilize recommended regimen of SQ basal bolus insulin regimen with Lantus + NovoLog (CF+CR) PLAN FOR INPATIENT GLYCEMIC CONTROL: * Basal insulin * Lantus 30 units SQ BID * Bolus insulin * NovoLog per scale ACHS or Q6hrs while NPO * Goal Range: Low 110 mg/dL - High 140 mg/dL * Correction Factor: 15 mg/dL/unit * Nutritional / Prandial insulin per carb ratio of 1 unit per 4 grams CHO consumed Discharge Recommendations: * A1c indicates adequate outpatient control. Recommend to continue outpatient regimen on discharge, unless patient experiencing hypoglycemia at home. Thank you.
--- NOTE | 2019-03-11 01:21 | History & Physical Report ---
Date of Service March 11, 2019 Assessment & Plan (1) Pneumonia: Admit to inpatient on telemetry Vital signs every 4 hours Gentle IV fluid for hydration with normal saline of 80 cc/h for total 1 L Continue duo nebs every 4 hours as needed for sob CBC CMP A1c lipid panel BNP Swallow study for suspected aspiration pneumonia CPAP at night for sleep apnea Continue budesonide Albuterol sulfate 2 puffs 4 times daily as needed. 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 daily Present on Admission?: Yes (7) Obstructive sleep apnea: CPAP at night Present on Admission?: Yes (8) Hypertension: Continue metoprolol tartrate 25 mg p.o. twice daily, lisinopril 10 mg p.o. every morning, (9) Diabetes mellitus type 2 in nonobese: Glycemic control per pharmacy Present on Admission?: Yes (10) Depression as late effect of cerebrovascular accident (CVA): Fluoxetine 10 mg p.o. every morning History of Present Illness Chief Complaint: Shortness of breath Primary Care Provider: Rigoberto Bhatt MD Patient is a 63 years old male with past medical history of recent stroke with deficit of the 3rd cranial nerve paresis on the right, diabetes mellitus type 2, coronary artery disease, obstructive sleep apnea on CPAP hypertension hyperlipidemia presents to the emergency room with episode of abnormal blood culture and urine sample obtained in his PCPs office. There were found in 1 of 2 patient cultures grew gram-positive cocci's in chain and it was from March 09, 2019. Sensitivity is still pending. Blood cultures are repeated today in the emergency room. Urine culture shows no growth and less than 1000 colonies per milliliter which is beyond susceptibility. Patient had fever at home of 101.7 over the weekend and his temperature was 100 when he visited his doctor yesterday. Patient also noted loose bowel movement and slight cough. Patient denies headache chest pain abdominal pain frequency urgency hemoptysis hematuria dysuria. Patient was diagnosed with a stroke on February 14. Patient was started on ceftriaxone in the ER. Labs are reviewed: Viable cell 9.29, hemoglobin 15, hematocrit 41.6, platelets 219. PT 10.9, INR 1.1, APTT 28.9. Sodium 138, potassium 4, chloride 105, carbon dioxide 26, anion gap 7, BUN 35, creatinine 1.5 which is patient's baseline, troponin -0 0.015, C-reactive protein of 15.4, albumin 3.1. Chest x-ray: Albuterol opacities of the medial right lung base are suspicious for pneumonia. Cardiomegaly without pulmonary edema. Allergies Allergy/AdvReac Type Severity Reaction Status Date / Time No Known Allergies AdvReac U Unverified 03/10/19 13:03 Home Medications Home Medications Medication Instructions Recorded Confirmed Type fluoxetine 10 mg PO QAM #0 01/19/06 03/10/19 History ranitidine HCl [Zantac] 150 mg PO BID #0 01/19/06 03/10/19 History aspirin 81 mg PO QAM #0 08/08/14 03/10/19 History lisinopril 10 mg PO QAM #0 08/08/14 03/10/19 History multivitamin 1 tab PO QAM #0 tab 08/08/14 03/10/19 History insulin lispro protamin-lispro 60 unit SUBCUT BID #0 vial 02/20/18 03/10/19 History [Humalog Mix 75-25 KwikPen] acetaminophen 1,000 mg PO Q6H PRN 03/01/19 03/10/19 History albuterol sulfate [ProAir HFA] 2 puff INHALATION QID PRN 03/01/19 03/10/19 History budesonide 2 ml IRRIGATION DIRECTED 03/01/19 03/10/19 History clopidogrel 75 mg PO DAILY 03/01/19 03/10/19 History glenn (Zingiber officinalis) 250 mg PO DAILY 03/01/19 03/10/19 History lorazepam 0.5 mg PO DAILY PRN 03/01/19 03/10/19 History losartan 25 mg PO DAILY 03/01/19 03/10/19 History metoprolol tartrate 25 mg PO BID 03/01/19 03/10/19 History nitroglycerin [Nitrostat] 0.4 mg SUBLINGUAL UD PRN 03/01/19 03/10/19 History rosuvastatin 40 mg PO DAILY 03/01/19 03/10/19 History tramadol 50 mg PO Q6H PRN 03/01/19 03/10/19 History vitamins A,C,I-zzuq-wwnnky 1 tab PO BID 03/01/19 03/10/19 History [PreserVision AREDS] Past Med/Surg History Medical History No significant family history No significant past medical history Family History Other No significant family history Social History Communication Ability: Effective Social Worker Masters Required: No Beliefs That Will Affect Care: Jewish Jewish Beliefs: oriental orthodox Current Living Situation: Spouse Other Information That Helps Us Care for You: No Feels Safe at Home: Yes Safety Concerns: Feels Safe At This Time Smoking Status: Never smoker Hx Alcohol Use: No Hx Substance Use: No Review of Systems Review of Systems: All systems reviewed & are unremarkable except as noted in HPI & below Physical Exam Constitutional: WD/WN, vitals as above well developed and + obese Eyes: PERRL, conjunctivae normal, anicteric sclerae ENMT: external ear and nose normal, oropharynx normal Neck: trachea midline, no thyromegaly Respiratory: Auscultation: + crackles and + wheezes Cardiovascular: RRR, no murmur, no edema Gastrointestinal (Abdomen): normal bowel sounds, soft, nontender, no hepatosplenomegaly Musculoskeletal: no cyanosis or clubbing, extremities motor strength 5/5 Skin: no rashes, warm and dry Neurologic: normal touch/pain/proprioception, deep tendon reflexes 2+ bilaterally and plantar reflexes intact bilaterally Comatose Patient: + corneal reflex absent (On the right) Deficit of the 3rd cranial nerve on the right with a proptosis of the right eye. Psychiatric: A+Ox3, euthymic affect Lymphatic: no cervical or axillary lymphadenopathy Results & Data Vital Signs (Past 12 Hours) Vital Signs Temp Pulse Pulse Resp BP BP BP 03/11/19 00:10 36.6 C 67 19 125/67 03/11/19 00:00 77 03/10/19 23:34 80 16 03/10/19 21:24 75 117/60 03/10/19 18:59 37.0 C 75 76 18 158/116 H 03/10/19 17:45 72 9 L 109/61 03/10/19 17:30 75 19 104/59 L 03/10/19 17:15 73 12 110/61 03/10/19 17:00 78 15 108/60 03/10/19 16:45 78 21 120/69 03/10/19 16:30 62 23 127/66 03/10/19 16:15 80 16 133/70 03/10/19 16:02 21 114/69 03/10/19 16:00 21 03/10/19 15:46 20 125/77 03/10/19 15:45 27 H 03/10/19 15:30 80 16 123/76 03/10/19 15:15 73 18 105/87 03/10/19 15:00 72 13 127/80 03/10/19 14:45 74 12 121/76 03/10/19 14:30 76 17 108/74 03/10/19 14:15 73 20 123/72 03/10/19 14:00 77 22 103/51 L 03/10/19 13:56 72 23 03/10/19 13:45 74 21 103/61 03/10/19 13:35 103/61 Pulse Ox 03/11/19 00:10 95 03/11/19 00:00 03/10/19 23:34 93 03/10/19 21:24 03/10/19 18:59 95 03/10/19 17:45 90 03/10/19 17:30 94 03/10/19 17:15 92 03/10/19 17:00 92 03/10/19 16:45 91 03/10/19 16:30 94 03/10/19 16:15 96 03/10/19 16:02 96 03/10/19 16:00 96 03/10/19 15:46 95 03/10/19 15:45 94 03/10/19 15:30 94 03/10/19 15:15 93 03/10/19 15:00 95 03/10/19 14:45 93 03/10/19 14:30 90 03/10/19 14:15 93 03/10/19 14:00 93 03/10/19 13:56 94 03/10/19 13:45 95 03/10/19 13:35 Code Status & VTE Plan Code Status Full code VTE Prophylaxis Plan VTE Prophylaxis will be ordered: Yes PG Care Time/CCT Total # of Minutes Spent Total Time Spent with Patient: Total time spent is greater than 50% in coordination of care (as documented) at patient's floor/unit and/or counseling patient: (1) Pneumonia Laterality: unspecified laterality Lung location: unspecified part of lung Pneumonia type: due to unspecified organism Qualified Code(s): J18.9 - Pneumonia, unspecified organism (2) Cranial third nerve paresis Laterality: unspecified laterality Qualified Code(s): H49.00 - Third [oculomotor] nerve palsy, unspecified eye
[2019-03-11] MEDS: TRAMADOL HCL 50 MG TABLET PO PRN ×2 (03:32→15:50)
[2019-03-11] MEDS: metroNIDAZOLE 500 MG/100 ML BAG IV SCH (04:33)
[2019-03-11 06:26] LABS: Basophils # (auto) 0.02 K/uL (0-0.2); Basophils % (auto) 0.3 %; Eosinophils # (auto) 0.44 K/uL (0-0.5); Eosinophils % (auto) 5.9 %; Hematocrit (blood only) 36.9 % (42-52); Hemoglobin 13.1 g/dL (14.0-18.0); Immature Granulocytes # (auto) 0.02 K/uL (0.00-0.02); Immature Granulocytes % (auto) 0.3 %; Lymphocytes # (auto) 1.35 K/uL (1.2-3.4); Mean Corpuscular Hgb Conc 35.5 g/dL (32-36); Mean Corpuscular Volume 91.3 fL (80-100); Mean Platelet Volume 9.6 fL (7.4-10.4); Monocytes # (auto) 0.99 K/uL (0.11-0.59); Monocytes % (auto) 13.2 %; Neutrophils # (auto) 4.69 K/uL (1.4-6.5); Neutrophils % (auto) 62.3 %; Platelet Count 205 K/uL (130-400); RDW Coefficient of Variation 13.3 % (11.5-14.5); RDW Standard Deviation 44.6 fL (36.4-46.3); Red Blood Count 4.04 M/uL (4.7-6.1); White Blood Count 7.51 K/uL (4.8-10.8)
[2019-03-11 07:02] LABS: Estimated Average Glucose 151 mg/dl; Hemoglobin A1C 6.9 % (4.5-5.6)
[2019-03-11 07:04] LABS: Albumin Level 2.6 gm/dl (3.4-5.0); BUN Creatinine Ratio 19.9 (10-20); Creatinine Clr Calc Pharmacy 71.3 ml/min; Est GFR (African American) 78.6; Est GFR (Non-African American) 67.8; Potassium 3.8 mmol/L (3.5-5.1)
[2019-03-11 07:07] LABS: Albumin Globulin Ratio 0.6 (0.9-2); Bilirubin,Total 0.3 mg/dl (0.2-1); Globulin 4.1 gm/dl (2.5-4.0); Total Protein 6.7 gm/dl (6.4-8.2)
[2019-03-11] MEDS: INSULIN ASPART 100 UNITS/ML 3 ML PEN SC SCH ×4 (08:10→21:28)
[2019-03-11] MEDS: HEPARIN SOD 5,000 UNIT/0.5 ML VIAL SQ SCH ×2 (08:12→21:24)
[2019-03-11] MEDS: SODIUM CHLORIDE 0.9% 1000ML 1,000 ML IV SCH (08:23)
[2019-03-11] MEDS: ROSUVASTATIN CALCIUM 20 MG TAB PO SCH (08:24)
[2019-03-11] MEDS: CLOPIDOGREL BISULFATE 75 MG TAB PO SCH (08:25)
[2019-03-11] MEDS: LISINOPRIL 10 MG TAB PO SCH (08:25)
[2019-03-11] MEDS: ASPIRIN 81 MG ECTAB PO SCH (08:26)
[2019-03-11] MEDS: LOSARTAN POTASSIUM 25 MG TAB PO SCH (08:26)
[2019-03-11] MEDS: FLUOXETINE HCL 10 MG CAP PO SCH (08:26)
[2019-03-11] MEDS: CEROVITE ADV FORMULA TAB PO SCH (08:26)
[2019-03-11] MEDS: METOPROLOL TARTRATE 25 MG TAB PO SCH ×2 (08:27→21:23)
--- NOTE | 2019-03-11 08:34 | Pharmacy Report ---
Pharmacy Glycemic Short Note 2 - Date of Service March 11, 2019 - Glycemic Short BSG Results (Last 24 hours): 03/10/19 03/10/19 03/10/19 13:24 19:12 20:58 Glucose 156 H POC Glucose 71 96 03/11/19 03/11/19 05:35 07:41 Glucose 199 H POC Glucose 170 H OUTPATIENT ANTIDIABETIC REGIMEN: * Humalog Mix 75/25 60 units BID * A1c = 7.2 % 01/18/19 Risk Factors for Insulin Resistance: * Infection: on Rocephin/Flagyl for aspiration pneumonia/ presumed strep bacteremia * Diet: heart healthy -> changed to type 2 diabetes ASSESSMENT: 03/11/19 * Fasting blood sugar 199mg/dl, after HS blood sugar of 96mg/dl. Will increase basal at this time, and continue CF and CR. 03/10/19 * 63 y/o male admitted after culture results from yesterday showed gram positive cocci in chains. He is a type 2 diabetic, who uses mixed insulin as an outpatient. * Outpatient regimen is premixed basal/prandial insulin of Humalog Mix 75/25 insulin. * Pre-mixed insulin is difficult to titrate since it is already in a fixed distribution of basal:prandial insulin. Continuing pre-mixed insulin for admission typically lead to hypoglycemia d/t changing PO status but rapid acting insulin is unable to be held. * Home regimen will be held for admission per pharmacy consult. Will utilize recommended regimen of SQ basal bolus insulin regimen with Lantus + NovoLog (CF+CR) PLAN FOR INPATIENT GLYCEMIC CONTROL: * Basal insulin - increase * Lantus 35 units SQ BID * Bolus insulin * NovoLog per scale ACHS or Q6hrs while NPO * Goal Range: Low 110 mg/dL - High 140 mg/dL * Correction Factor: 15 mg/dL/unit * Nutritional / Prandial insulin per carb ratio of 1 unit per 4 grams CHO consumed Discharge Recommendations: * A1c indicates adequate outpatient control. Recommend to continue outpatient regimen on discharge, unless patient experiencing hypoglycemia at home. Thank you.
[2019-03-11] MEDS ORDERED: GINGER PO SCH (09:00)
[2019-03-11] MEDS ORDERED: MULTIVITAMIN TAB PO SCH (09:00)
[2019-03-11] MEDS ORDERED: INSULIN GLARGINE SOLOSTAR 100 UNITS/ML 3 ML PEN SC SCH (09:00)
[2019-03-11] MEDS ORDERED: cefTRIAXone SODIUM 2,000 MG in DEXTROSE 5% 50 ML IV SCH (14:00)
--- NOTE | 2019-03-11 16:34 | History & Physical Bridge Note ---
Date of Service March 11, 2019 History & Physical Bridge Note Somewhat confusing case with the patient having weekend chills and sweats, but really no focal symptoms of infection. Blood culture from 03/09 with alpha Strep with only 1/4 bottles. Patient had only mild shortness of breath symptoms, no real cough, though his CXR does show RLL pneumonia. - Discussed with COAL CHUTE WORKER and ID - This may be a real bacteremia despite only being 1/4 bottles - Discussed with micro - They will speciate the bacteria. - Also with Acute kidney failure, resolved
[2019-03-11] MEDS: ACETAMINOPHEN 325 MG TAB PO PRN ×2 (17:31→23:22)
[2019-03-11] MEDS: INSULIN GLARGINE SOLOSTAR 100 UNITS/ML 3 ML PEN SC SCH (21:31)
[2019-03-12 07:10] LABS: Basophils # (auto) 0.03 K/uL (0-0.2); Basophils % (auto) 0.4 %; Eosinophils % (auto) 6.5 %; Hematocrit (blood only) 40.1 % (42-52); Hemoglobin 14.1 g/dL (14.0-18.0); Immature Granulocytes # (auto) 0.02 K/uL (0.00-0.02); Immature Granulocytes % (auto) 0.3 %; Lymphocytes # (auto) 1.99 K/uL (1.2-3.4); Mean Corpuscular Hgb Conc 35.2 g/dL (32-36); Mean Corpuscular Volume 91.8 fL (80-100); Mean Platelet Volume 9.3 fL (7.4-10.4); Monocytes % (auto) 11.8 %; Platelet Count 212 K/uL (130-400); RDW Coefficient of Variation 13.1 % (11.5-14.5); Red Blood Count 4.37 M/uL (4.7-6.1); White Blood Count 7.64 K/uL (4.8-10.8)
[2019-03-12 07:55] LABS: Albumin Globulin Ratio 0.6 (0.9-2); Albumin Level 2.9 gm/dl (3.4-5.0); BUN Creatinine Ratio 16.8 (10-20); Bilirubin,Total 0.4 mg/dl (0.2-1); Creatinine Clr Calc Pharmacy 66.2 ml/min; Est GFR (African American) 72.4; Est GFR (Non-African American) 62.4; Globulin 4.5 gm/dl (2.5-4.0); Potassium 4.6 mmol/L (3.5-5.1); Total Protein 7.4 gm/dl (6.4-8.2)
[2019-03-12] MEDS: INSULIN ASPART 100 UNITS/ML 3 ML PEN SC SCH ×2 (08:37→12:53)
[2019-03-12] MEDS: LOSARTAN POTASSIUM 25 MG TAB PO SCH (08:39)
[2019-03-12] MEDS: ROSUVASTATIN CALCIUM 20 MG TAB PO SCH (08:39)
[2019-03-12] MEDS: ASPIRIN 81 MG ECTAB PO SCH (08:40)
[2019-03-12] MEDS: HEPARIN SOD 5,000 UNIT/0.5 ML VIAL SQ SCH (08:42)
[2019-03-12] MEDS: INSULIN GLARGINE SOLOSTAR 100 UNITS/ML 3 ML PEN SC SCH (08:42)
[2019-03-12] MEDS: METOPROLOL TARTRATE 25 MG TAB PO SCH (08:43)
[2019-03-12] MEDS: CLOPIDOGREL BISULFATE 75 MG TAB PO SCH (08:44)
[2019-03-12] MEDS: CEROVITE ADV FORMULA TAB PO SCH (08:45)
[2019-03-12] MEDS: FLUOXETINE HCL 10 MG CAP PO SCH (08:45)
[2019-03-12] MEDS: LISINOPRIL 10 MG TAB PO SCH (08:46)
--- NOTE | 2019-03-12 11:29 | Fluoroscopy Report ---
FL video swallow HISTORY: r/o aspiration TECHNIQUE: Video fluoroscopic evaluation of swallowing was performed in the AP and lateral projection s by the speech pathology staff. The patient is fed nectar-thick and thin liquid barium, a barium coa padmini wafer, and barium pudding. FLUOROSCOPY TIME: 1.4 minutes. COMPARISON STUDY: None. FINDINGS: There is normal hyoid excursion and epiglottic deflection. No significant penetration or as piration identified. Swallowing function is within normal limits. IMPRESSION: 1. No aspiration identified. 2. Please see the speech pathologist report for detailed findings and recommendations. Electronically signed by: Fabio Nina M.D. 03/12/2019 11:28 AM
--- NOTE | 2019-03-12 18:31 | Discharge Summary ---
Date of Service March 12, 2019 Admission HPI Per Admitting Provider Patient is a 63 years old male with past medical history of recent stroke with deficit of the 3rd cranial nerve paresis on the right, diabetes mellitus type 2, coronary artery disease, obstructive sleep apnea on CPAP hypertension hyperlipidemia presents to the emergency room with episode of abnormal blood culture and urine sample obtained in his PCPs office. There were found in 1 of 2 patient cultures grew gram-positive cocci's in chain and it was from March 09, 2019. Sensitivity is still pending. Blood cultures are repeated today in the emergency room. Urine culture shows no growth and less than 1000 colonies per milliliter which is beyond susceptibility. Patient had fever at home of 101.7 over the weekend and his temperature was 100 when he visited his doctor yesterday. Patient also noted loose bowel movement and slight cough. Patient denies headache chest pain abdominal pain frequency urgency hemoptysis hematuria dysuria. Patient was diagnosed with a stroke on February 14. Patient was started on ceftriaxone in the ER. Labs are reviewed: Viable cell 9.29, hemoglobin 15, hematocrit 41.6, platelets 219. PT 10.9, INR 1.1, APTT 28.9. Sodium 138, potassium 4, chloride 105, carbon dioxide 26, anion gap 7, BUN 35, creatinine 1.5 which is patient's baseline, troponin -0 0.015, C-reactive protein of 15.4, albumin 3.1. Chest x-ray: Albuterol opacities of the medial right lung base are suspicious for pneumonia. Cardiomegaly without pulmonary edema. Principal Diagnosis Aspiration pneumonia Discharge Exam Constitutional WD/WN, vitals as above Eyes EOM intact bilaterally; no conjunctival abnormality ENMT external ear and nose normal, oropharynx normal Neck trachea midline, no thyromegaly normal visual inspection Respiratory normal respiratory effort, lungs clear to auscultation no respiratory distress Cardiovascular RRR, no murmur, no edema Gastrointestinal (Abdomen) Inspection/Auscultation: abdomen normal to inspection; abdomen not distended Musculoskeletal no cyanosis or clubbing, extremities motor strength 5/5 Skin no rashes, warm and dry Neurologic moves all extremities and awake Psychiatric Orientation: alert, oriented to person and cooperative Discharge Data Allergies Allergy/AdvReac Type Severity Reaction Status Date / Time No Known Allergies AdvReac U Unverified 03/10/19 13:03 Consultations 03/10/19 13:39 ED Decision to Admit Stat Ordered Studies 03/12/19 11:00 FL video swallow Routine Hospital Course (1) Pneumonia: Blood culture grew alpha-hemolytic Strep (Strep viridans) in 1/4 cultures bottles. Given the location of the pneumonia (RLL) and the bug, it was thought this was likely reflux-related. Swallow study (videofluoroscopic exam) showed no aspiration, but did show significant reflux after small bites of the contrast material. We discussed good reflux-precautions including restarting his PPI, slippery diet, and not taking naps/going to bed soon after eating. - For the pneumonia, he was put in Augmentin on discharge. He will need 2-weeks total course given the bacteremia, so he was given 12 additional days as he was on the ceftriaxone for 2 days. - Will follow up with his PCP for follow up CXR in 4-6 weeks. 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 daily (7) Obstructive sleep apnea: CPAP at night (8) Hypertension: Continue metoprolol tartrate 25 mg p.o. twice daily, lisinopril 10 mg p.o. every morning, (9) Diabetes mellitus type 2 in nonobese: Glycemic control per pharmacy (10) Depression as late effect of cerebrovascular accident (CVA): Fluoxetine 10 mg p.o. every morning Total Time Total Time Spent Total Time Spent (In Minutes): 34 Discharge Plan Discharge Items Patient Disposition: Home - Self-Care Reason For Visit: Aspiration pneumonia Discharge Diagnosis: Aspiration pneumonia Discharge Goals: Diagnostic testing, Improve disease control and Improve function Activity: Resume your previous activity Non-emergency contact: Primary Care Provider Call non-emergency contact if: your symptoms worsen and your temperature is above 101 Follow-up/Referrals: Rigoberto Bhatt MD [Primary Care Provider] - 03/16/19 3:30 pm (Please, follow up with Dr. Daniel Gonzalez on FridayMarch 16 at 3:30 pm. *If you need to change this appointment, call the office at [phone].) Diet: Regular Addtl Provider Instructions: You were admitted for pneumonia. We believe this was caused by bacteria in the mouth going down into the lungs. This may have happened due to your pretty significant reflux. Please do the following for this infection: 1) Take the Augmentin 2 times per day until it is entirely gone. This is important because we need to be sure we are fully killing the bacteria in the blood. 2) Take Prilosec 1 time per day instead of your Zantac. You can still take your Zantac as needed up to 2 times per day. 3) Do not eat late-night snacks or take a nap after a meal. You should remain upright for at least an hour after eating. 4) If you have continued heartburn symptoms, please discuss this with your PCP. Prescriptions: New pantoprazole 40 mg tablet,delayed release (DR/EC) 40 mg PO DAILY 28 Days Qty: 28 RF: 0 amoxicillin-pot clavulanate 875-125 mg tablet 1 tab PO Q12H Qty: 24 RF: 0 Continued fluoxetine 10 mg Tablet 10 mg PO QAM Qty: 0 RF: 0 multivitamin Tablet 1 tab PO QAM Qty: 0 RF: 0 aspirin 81 mg Tablet,Delayed Release (Dr/Ec) 81 mg PO QAM Qty: 0 RF: 0 lisinopril 10 mg Tablet 10 mg PO QAM Qty: 0 RF: 0 Humalog Mix 75-25 KwikPen 100 unit/mL (75-25) Insulin Pen 60 unit SUBCUT BID Qty: 0 RF: 0 clopidogrel 75 mg tablet 75 mg PO DAILY RF: 0 acetaminophen 500 mg Tablet 1,000 mg PO Q6H PRN (Reason: Pain) RF: 0 lorazepam 0.5 mg tablet 0.5 mg PO DAILY PRN (Reason: Anxiety) RF: 0 glenn (Zingiber officinalis) 250 mg Capsule 250 mg PO DAILY RF: 0 losartan 25 mg tablet 25 mg PO DAILY RF: 0 budesonide 1 mg/2 mL suspension for nebulization 2 ml irrigation DIRECTED RF: 0 PreserVision AREDS [id number] Tablet 1 tab PO BID RF: 0 tramadol 50 mg Tablet 50 mg PO Q6H PRN (Reason: Pain) RF: 0 nitroglycerin [Nitrostat] 0.4 mg Tablet, Sublingual 0.4 mg sublingual UD PRN (Reason: Chest Pain) RF: 0 albuterol sulfate [ProAir HFA] 90 mcg/actuation HFA aerosol inhaler 2 puff inhalation QID PRN (Reason: Wheezing) RF: 0 rosuvastatin 40 mg Tablet 40 mg PO DAILY RF: 0 metoprolol tartrate 25 mg tablet 25 mg PO BID RF: 0 Changed ranitidine HCl [Zantac] 150 mg Tablet 150 mg PO BID PRN (Reason: Acid Reflux) Qty: 0 RF: 0 Stand-Alone Forms: [facility] Discharge Orders: Discharge Order (Routine); Ordered 03/12/19 Ordered By: Anthony Broderick Admission Data Admit Date/Time: 03/10/19 16:20 Attending Provider: Anthony Broderick Admit Provider: Craig Garber Primary Care Provider: Rigoberto Bhatt Other Providers: Anthony Broderick Service: Telemetry Medical Other Interventions: Discharge Summary Assessment (RN) Last Done: 03/12/19 14:01 DC Date/Time DO NOT enter until pt leaves facility: 03/12/19 14:48
== END 2019-03-12 14:48 | disposition home or self-care (01) | DRG 178 ==
LOC: ED 12:28 → SUATTDRO 16:20 → 2N 16:20
DX: N28.9 Disorder of kidney and ureter, unspecified; J69.0 Pneumonitis due to inhalation of food and vomit; G47.33 Obstructive sleep apnea (adult) (pediatric); H49.01 Third [oculomotor] nerve palsy, right eye; I12.9 Hypertensive chronic kidney disease with stage 1 through stage 4 chronic kidney disease, or unspecified chronic kidney disease; R10.9 Unspecified abdominal pain; R50.9 Fever, unspecified; R78.81 Bacteremia; Z86.73 Personal history of transient ischemic attack (TIA), and cerebral infarction without residual deficits; N39.0 Urinary tract infection, site not specified; E78.5 Hyperlipidemia, unspecified; F32.9 Major depressive disorder, single episode, unspecified; N18.3 Chronic kidney disease, stage 3 (moderate); N17.9 Acute kidney failure, unspecified; E11.22 Type 2 diabetes mellitus with diabetic chronic kidney disease

== ENCOUNTER 2023-10-28 22:30 | Observation (INO) ==
[2023-10-28 23:04] LABS: Appearance Urine Clear (Clear); Bacteria Urine Automated None Seen (None Seen); Bilirubin Urine Negative (Negative); Blood Urine Trace (Negative); Cast Urine Automated 0-2 /lpf (0-2); Color Urine Yellow; Epithelial Cell Urine Auto 0-2 /hpf (0-2); Glucose Urine UA 3+ (Negative); Ketones Urine Negative (Negative); Leukocyte Esterase Urine Negative (Negative); Nitrite Urine Negative (Negative); Protein Urine Negative (Negative); RBC Urine Automated 0-2 /hpf (0-2); Urobilinogen Urine Negative (Negative); WBC Urine Automated 0-5 /hpf (0-5)
[2023-10-28 23:08] LABS: Basophils # (auto) 0.05 K/uL (0.00-0.20); Basophils % (auto) 0.3 %; Eosinophils % (auto) 2.4 %; Hematocrit (blood only) 44.7 % (42.0-52.0); Hemoglobin 15.7 g/dl (14.0-18.0); Immature Granulocytes # (auto) 0.06 K/uL (0.01-0.20); Immature Granulocytes % (auto) 0.4 %; Lymphocytes # (auto) 2.28 K/uL (1.20-3.40); Lymphocytes % (auto) 13.5 %; Mean Corpuscular Hemoglobin 31.7 pg (25.0-34.0); Mean Corpuscular Hgb Conc 35.1 g/dL (32.0-36.0); Mean Corpuscular Volume 90.3 fL (80.0-100.0); Mean Platelet Volume 9.4 fL (9.4-12.4); Monocytes # (auto) 1.08 K/uL (0.11-0.59); Monocytes % (auto) 6.4 %; Neutrophils # (auto) 12.98 K/uL (1.40-6.50); Platelet Count 212 K/uL (130-400); RDW Standard Deviation 42.5 fL (36.4-46.3); Red Blood Count 4.95 M/uL (4.70-6.10); White Blood Count 16.85 K/ul (4.8-10.8)
[2023-10-28 23:19] LABS: Albumin Globulin Ratio 1.6 (0.9-2); Albumin Level 4.6 gm/dl (3.4-5.0); BUN Creatinine Ratio 21.7 (10-20); Bilirubin,Total 0.7 mg/dl (0.2-1.0); Calcium 9.4 mg/dl (8.6-10.3); Creatinine Clr Calc Pharmacy 39.2 ml/min; Est GFR (African American) 40.8 ml/min; Est GFR (Non-African American) 35.2 ml/min; Globulin 2.8 gm/dl (2.5-4.0); Potassium 3.6 mmol/L (3.5-5.1); Total Protein 7.4 gm/dl (6.0-8.3)
[2023-10-29] MEDS: SODIUM CHLORIDE 0.9% 1,000 ML IV SCH (01:10)
--- NOTE | 2023-10-29 01:47 | Emergency Department Note ---
Impression & Plan Colitis ED Provider Note CHIEF COMPLAINT: Right lower quadrant abdominal pain HISTORY OF PRESENT ILLNESS: This 68-year-old male patient past medical history of BPH, maxillary sinusitis, presents to the emergency department with complaints of right lower quadrant abdominal pain. The patient states pain started yesterday into today. He noticed it when he was shoveling mulch. He believes he has had his gallbladder removed, but his appendix remains. He has not had much of an appetite, but denies any vomiting or significant diarrhea. He has not had any fevers. REVIEW OF SYSTEMS: A review of systems was performed with positives and pertinent negatives listed in the history of present illness. 10 systems were reviewed and are otherwise negative. ALLERGIES: see below MEDICATIONS: see below PMH: see below SOCIAL HISTORY: see below DDx: Appendicitis, pancreatitis, kidney stone, diverticulitis, small bowel obstruction, UTI/pyelonephritis among others. Patient is suicidal PHYSICAL EXAM: Vital signs reviewed. General: Generally well-appearing 68-year-old male worsening moist mucous membranes., in no significant distress. HEENT: No scleral icterus, PERRLA, neck supple. She has no specific lumbar self but states that she does not want to be hearing Cardiovascular: Regular rate and rhythm, no extra sounds. Pulmonary: Clear to auscultation bilaterally, normal work of breathing. Abdomen: Soft, nontender, nondistended, positive bowel sounds. Musculoskeletal: Atraumatic, no peripheral edema. Neurologic: Patient awake alert and oriented x 3, speech is clear Skin: Warm, dry, no rash EMERGENCY DEPARTMENT COURSE/MDM: This patient was evaluated and appeared to be in no significant distress. IV access was obtained and laboratory work was drawn. The patient was placed on the satellite project site monitor noted to be in a normal sinus rhythm. Patient was hydrated with normal saline solution. CT imaging of the abdomen pelvis was performed and reveals evidence of a focal colitis versus inflammatory neoplasm in the right ascending colon/cecum. Patient's laboratory work reveals an elevated WBC at 16.85. Patient's case was discussed with the hospitalist service, patient was medicated with IV Zosyn after discussion with Dr. Schroeder. I did inform the patient and his of the findings and plan, they agreed. Patient will be evaluated for admission and further management. MONITORING: An order for cardiac monitoring was placed and the patient is noted to be in a normal sinus rhythm at beats 79 per minute. RADIOLOGY: CT abd/pelvis: IMPRESSION: 1. Focal colitis versus inflammatory neoplasm versus lymphoma involving the cecum/right ascending colon. Clinical correlation recommended and if indicated, follow-up with colonoscopy when clinically feasible and following treatment/resolution of symptoms. 2. Status post cholecystectomy, otherwise unremarkable abdominal viscera. EKG: To my interpretation reveals a normal sinus rhythm at 80 bpm. No PVC, no PAC. Normal ST segments. QTc of 425. Poor R wave progression. 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 2017 BPH (benign prostatic hyperplasia) Elevated PSA Surgical History H/O knee surgery removal of calcium deposit Hx of colonoscopy Hx of sinus surgery Status post cardiac surgery quadruple bypass 2016 Hx of cholecystectomy History of lung surgery left lung was removed Family History Father Prostate cancer Mother Myocardial infarction Brother Myocardial infarction Lung cancer Denies family history of Ovarian cancer Breast cancer Colorectal cancer Social History Smoking Status: Never smoker Second Hand Exposure: No; Do You Dip or Chew Tobacco: No; Hx Alcohol Use: No Hx Substance Use: No Preferred Language: Swedish Communication Ability: Effective 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 Beliefs That Will Affect Care: None marital status: Current Living Situation: Spouse Current Living Situation Comment: lives with in 2 story house Feels Safe at Home: Yes Seatbelt Use: always Assistive Devices: None Allergies Allergies Allergy/AdvReac Type Severity Reaction Status Date / Time No Known Allergies AdvReac U Verified 10/31/23 11:23 Home Meds Home Medications Medication Instructions Recorded Confirmed aspirin 81 mg tablet,delayed 81 mg PO QAM ##0 08/08/14 10/31/23 release acetaminophen 500 mg tablet 1,000 mg PO Q6H PRN Pain 03/01/19 10/31/23 albuterol sulfate 90 mcg/actuation 2 puff inhalation QID PRN Wheezing 03/01/19 10/31/23 aerosol inhaler (ProAir HFA) nitroglycerin 0.4 mg sublingual 0.4 mg sublingual UD PRN Chest Pain 03/01/19 10/31/23 tablet (Nitrostat) vitamins A,C,[id number]-[id number]-[id number] 2,148 1 tab PO BID 03/01/19 10/31/23 mcg-113 mg-45 mg-17.4 mg tablet (PreserVision AREDS) cetirizine 10 mg tablet (Zyrtec) 10 mg PO QAM 05/03/21 10/31/23 insulin lispro protamine-lispro 40 - 55 unit subcut BID 10/29/23 10/31/23 100 unit/mL (75-25) subcutaneous pen (Humalog Mix 75-25 KwikPen) sildenafil (pulm.hypertension) 20 20 mg PO DIRECTED PRN Sexual 10/29/23 10/31/23 mg tablet Activity triamcinolone acetonide 0.1 % 1 applic topical BID PRN Skin 10/29/23 10/31/23 topical ointment Irritation Previous Rx's Medication Instructions Recorded losartan 50 mg tablet 50 mg PO QAM #90 tabs 03/03/23 lorazepam 0.5 mg tablet 0.5 mg PO DAILY PRN Anxiety #30 05/19/23 tabs azelastine 137 mcg (0.1 %) nasal 2 spray intranasal DAILY #30 mL 06/24/23 spray aerosol tirzepatide 7.5 mg/0.5 mL 7.5 mg (0.5 mL) subcut .ONCE 08/18/23 subcutaneous pen injector WEEKLY #6 mL (Mounjaro) empagliflozin 25 mg tablet 25 mg PO QAM #90 tabs 08/20/23 (Jardiance) omeprazole 20 mg tablet,delayed 20 mg PO QAM #90 tabs 08/28/23 release furosemide 20 mg tablet 20 mg PO DAILY PRN edema #90 tabs 09/05/23 rosuvastatin 40 mg tablet 40 mg PO QAM #90 tabs 10/15/23 fenofibrate nanocrystallized 48 mg 48 mg PO QAM #90 tabs 10/16/23 tablet amoxicillin 875 mg-potassium 1 tab PO BID #14 tabs 10/30/23 clavulanate 125 mg tablet tramadol 50 mg tablet 50 mg PO Q8H PRN pain #20 tabs 10/30/23 Results & Data (ED) Vital Signs Vital Signs - 24 hr 10/28/23 22:33 Temperature 37.0 C Temperature Source Temporal Artery Scan Pulse Rate 96 H Respiratory Rate 18 Respiratory Effort / Characteristics Non-Labored Spontaneous Respiratory Depth Normal Respiratory Pattern Regular Blood Pressure 132/75 Blood Pressure Mean 94 Blood Pressure Position Sitting Pulse Oximetry 92 Oxygen Delivery Method Room Air Sepsis Recent Fever Within 48 Hours No Sepsis New/Unexplained Change in Mental Status N/A Sepsis Action Taken by Nursing No Action Required Home Medications Current Medication List: was personally reviewed by me Laboratory Data Attestation: I reviewed the patient's lab results. 10/30/23 06:26 10/30/23 06:26 Lab Results 10/28/23 10/28/23 10/28/23 Range/Units 22:38 22:40 22:43 WBC 16.85 H (4.8-10.8) K/ul RBC 4.95 (4.70-6.10) M/uL Hgb 15.7 (14.0-18.0) g/dl Hct 44.7 (42.0-52.0) % MCV 90.3 (80.0-100.0) fL MCH 31.7 (25.0-34.0) pg MCHC 35.1 (32.0-36.0) g/dL RDW Std Deviation 42.5 (36.4-46.3) fL RDW Coeff of Braden 13.0 (11.5-14.5) % Plt Count 212 (130-400) K/uL MPV 9.4 (9.4-12.4) fL Immature Gran % (Auto) 0.4 % Neut % (Auto) 77.0 % Lymph % (Auto) 13.5 % [place] % (Auto) 6.4 % Eos % (Auto) 2.4 % Baso % (Auto) 0.3 % Neut # (Auto) 12.98 H (1.40-6.50) K/uL Lymph # (Auto) 2.28 (1.20-3.40) K/uL [place] # (Auto) 1.08 H (0.11-0.59) K/uL Eos # (Auto) 0.40 (0.00-0.50) K/uL Baso # (Auto) 0.05 (0.00-0.20) K/uL Immature Gran # (Auto) 0.06 (0.01-0.20) K/uL Peripher Smr Path Cons Sodium 138 (136-145) mmol/L Potassium 3.6 (3.5-5.1) mmol/L Chloride 103 (98-107) mmol/L Carbon Dioxide 25 (21-32) mmol/L Anion Gap 10 (3-11) BUN 41 H (6-23) mg/dl Creatinine 1.89 H (0.6-1.4) mg/dl Est Cr Clr Drug Dosing 39.2 ml/min Est GFR ( Amer) 40.8 ml/min Est GFR (Non-Af Amer) 35.2 ml/min BUN/Creatinine Ratio 21.7 H (10-20) Glucose 133 H (70-99(Fasting)) mg/dl POC Glucose 125 H (70-99) mg/dl Calcium 9.4 (8.6-10.3) mg/dl Total Bilirubin 0.7 (0.2-1.0) mg/dl AST 15 (13-39) U/L ALT 17 (7-52) U/L Alkaline Phosphatase 49 (34-104) U/L Total Protein 7.4 (6.0-8.3) gm/dl Albumin 4.6 (3.4-5.0) gm/dl Globulin 2.8 (2.5-4.0) gm/dl Albumin/Globulin Ratio 1.6 (0.9-2) Lipase 29 (11-82) U/L Urine Color Yellow Urine Appearance Clear (Clear) Urine pH 5.0 (4.5-7.5) Ur Specific [place] 1.020 (1.000-1.030) Urine Protein Negative (Negative) Urine Glucose (UA) 3+ H (Negative) Urine Ketones Negative (Negative) Urine Blood Trace H (Negative) Urine Nitrite Negative (Negative) Urine Bilirubin Negative (Negative) Urine Urobilinogen Negative (Negative) Ur Leukocyte Esterase Negative (Negative) Urine WBC (Auto) 0-5 (0-5) /hpf Urine RBC (Auto) 0-2 (0-2) /hpf U Hyaline Cast (Auto) 0-2 (0-2) /lpf U Epithel Cells (Auto) 0-2 (0-2) /hpf Urine Bacteria (Auto) None Seen (None Seen) Administered Medications Discontinued Medications Acetaminophen (Acetaminophen 500 Mg Tab) 1,000 mg PO NOW STA Stop: 10/29/23 04:10 Last Admin: 10/29/23 05:09 Dose: 1,000 mg Documented By: SEA Acetaminophen (Acetaminophen 500 Mg Tab) 1,000 mg PO ONE ONE Stop: 10/29/23 21:03 Last Admin: 10/29/23 21:15 Dose: 1,000 mg Documented By: RAINE Aspirin (Aspirin 81 Mg Ectab) 81 mg PO [facility] Stop: 11/28/23 08:59 Last Admin: 10/30/23 07:28 Dose: Not Given Documented By: Admin: 10/29/23 09:49 Dose: 81 mg Documented By: JESSIE Cetirizine HCl (Cetirizine Hcl 10 Mg Tablet) 10 mg PO [facility] Stop: 11/28/23 08:59 Last Admin: 10/30/23 07:28 Dose: Not Given Documented By: Admin: 10/29/23 09:48 Dose: 10 mg Documented By: JESSIE Fenofibrate (Fenofibrate Nanocrystallized 48 Mg Tablet) 48 mg PO [facility] Stop: 11/28/23 08:59 Last Admin: 10/30/23 07:28 Dose: Not Given Documented By: Admin: 10/29/23 09:48 Dose: 48 mg Documented By: JESSIE Sodium Chloride (Nss) 1,000 mls @ 125 mls/hr IV .Q8H [facility] Stop: 10/29/23 08:44 Last Infusion: 10/29/23 14:20 Dose: Infused Documented By: Admin: 10/29/23 01:10 Dose: 125 mls/hr Documented By: HUNG Piperacillin Sod/Tazobactam Sod (Zosyn) 4.5 gm in 100 mls @ 200 mls/hr IV NOW ONE Stop: 10/29/23 02:53 Last Infusion: 10/29/23 04:26 Dose: Infused Documented By: Admin: 10/29/23 03:25 Dose: 200 mls/hr Documented By: JUAN PABLO Piperacillin Sod/Tazobactam (Sod 4.5 gm/ Dextrose) 100 mls @ 25 mls/hr IV Q8H [facility]; Protocol Stop: 10/31/23 22:59 Last Admin: 10/30/23 15:47 Dose: Not Given Documented By: Infusion: 10/30/23 10:26 Dose: Infused Documented By: Admin: 10/30/23 06:05 Dose: 25 mls/hr Documented By: Infusion: 10/30/23 06:00 Dose: Infused Documented By: Admin: 10/29/23 23:57 Dose: 25 mls/hr Documented By: RAINE Piperacillin Sod/Tazobactam (Sod 4.5 gm/ Dextrose) 100 mls @ 200 mls/hr IV TODAY@1700 [facility]; Protocol Stop: 10/29/23 17:29 Last Infusion: 10/29/23 18:31 Dose: Infused Documented By: Admin: 10/29/23 17:58 Dose: 200 mls/hr Documented By: JESSIE Sodium Chloride (Nss) 500 mls @ 15 mls/hr IV .Q24H [facility] Stop: 11/29/23 07:59 Last Admin: 10/30/23 13:54 Dose: Not Given Documented By: BECCA Insulin Aspart (Insulin Aspart Per Unit Charge) 0 units SC Q6 [facility] Stop: 11/28/23 05:59 Last Admin: 10/29/23 06:20 Dose: Not Given Documented By: SEA Insulin Aspart (Insulin Aspart Per Unit Charge) 0 units SC ACHS [facility] Stop: 11/28/23 11:29 Last Admin: 10/29/23 21:14 Dose: 1 units Documented By: RAINE Co-signed By: JOSE ARMANDO Admin: 10/29/23 17:42 Dose: 6 units Documented By: JESSIE Co-signed By: PEDRO Admin: 10/29/23 13:00 Dose: 5 units Documented By: JESSIE Co-signed By: BEENA Insulin Aspart (Insulin Aspart Per Unit Charge) 0 units SC Q6 [facility] Stop: 11/29/23 00:00 Last Admin: 10/30/23 13:37 Dose: Not Given Documented By: Admin: 10/30/23 06:05 Dose: 1 units Documented By: RAINE Co-signed By: JOSE ARMANDO Admin: 10/30/23 00:12 Dose: 1 units Documented By: RAINE Co-signed By: JOSE ARMANDO Insulin Glargine (Lantus Per Unit Charge) 15 units SQ BID [facility] Stop: 11/28/23 20:59 Last Admin: 10/30/23 08:47 Dose: 7 units Documented By: BECCA Co-signed By: DEYSI Admin: 10/29/23 21:15 Dose: 15 units Documented By: RAINE Co-signed By: JOSE ARMANDO Ioversol (Optiray 320 100ml) 94 ml IV ONCE ONE Stop: 10/29/23 08:53 Last Admin: 10/29/23 08:53 Dose: 94 ml Documented By: SHAYY Lidocaine HCl (Lidocaine 2% 2 Ml Vial/Amp(20mg/Ml)) Confirm Administered Dose 2 ml INFIL .STK-MED ONE Stop: 10/30/23 08:13 Last Admin: 10/30/23 13:54 Dose: Not Given Documented By: BECCA Midazolam HCl (Midazolam Hcl 1 Mg/Ml 2ml Vial) Confirm Administered Dose 2 mg .ROUTE .STK-MED ONE Stop: 10/30/23 08:11 Last Admin: 10/30/23 13:54 Dose: Not Given Documented By: BECCA Ondansetron HCl (Ondansetron Inj 2 Mg/Ml 2 Ml Vial) Confirm Administered Dose 4 mg .ROUTE .STK-[facility] ONE Stop: 10/30/23 08:13 Last Admin: 10/30/23 13:54 Dose: Not Given Documented By: BECCA Pantoprazole Sodium (Pantoprazole 40 Mg Tab) 40 mg PO QAM [facility] Stop: 11/28/23 08:59 Last Admin: 10/30/23 07:28 Dose: Not Given Documented By: Admin: 10/29/23 09:49 Dose: 40 mg Documented By: JESSIE Polyethylene Glycol/Electrolytes (Lavage Solution 4000ml) 8 dose PO BID@0300,1800 [facility] Stop: 10/30/23 03:01 Last Admin: 10/30/23 03:28 Dose: 8 dose Documented By: Admin: 10/29/23 18:04 Dose: 8 dose Documented By: JESSIE Potassium Chloride (Potassium Chloride Crtab 20 Meq Tabcr) 40 meq PO NOW STA Stop: 10/29/23 16:38 Last Admin: 10/29/23 17:40 Dose: 40 meq Documented By: JESSIE Propofol (Propofol Iv Emulsion 10 Mg/Ml 20 Ml Vial) Confirm Administered Dose 200 mg IV .STK-MED ONE Stop: 10/30/23 08:13 Last Admin: 10/30/23 13:54 Dose: Not Given Documented By: AV Propofol (Propofol Iv Emulsion 10 Mg/Ml 20 Ml Vial) Confirm Administered Dose 200 mg IV .STK-MED ONE Stop: 10/30/23 13:01 Last Admin: 10/30/23 13:54 Dose: Not Given Documented By: AV Rosuvastatin Calcium (Rosuvastatin Calcium 20 Mg Tab) 40 mg PO QAM [facility] Stop: 11/28/23 08:59 Last Admin: 10/30/23 07:28 Dose: Not Given Documented By: Admin: 10/29/23 09:48 Dose: 40 mg Documented By: CS Imaging Data Radiologist's Impression: Abdomen/Pelvis CT 10/29/23 00:08 Exam(s): CT ABDOMEN + PELVIS Without Contrast EXAM: CT Abdomen and Pelvis Without Intravenous Contrast CLINICAL HISTORY: Reason for exam: lower abd pain, WBC, elevated creat. TECHNIQUE: Axial computed tomography images of the abdomen and pelvis without intravenous contrast. CTDI is 26.55 mGy and DLP is 1302.8 mGy-cm. Automated exposure control was utilized for the study. A dose lowering technique was utilized adhering to the principles of ALARA. COMPARISON: 07/03/2021. FINDINGS: Lung bases: Minimal bilateral multifocal atelectasis. Heart: Unremarkable. No cardiomegaly. No significant pericardial effusion. Normal cardiac size with coronary artery calcifications. ABDOMEN: Liver: Unremarkable. Gallbladder and bile ducts: Status post cholecystectomy. No ductal dilation. Pancreas: Unremarkable. No ductal dilation. Spleen: Unremarkable. No splenomegaly. Adrenals: Unremarkable. No mass. Kidneys and ureters: Right lower pole simple cyst measuring 12 mm. Otherwise normal right kidney. Normal left kidney. No obstructing stones. No hydronephrosis. Stomach and bowel: Focal area of thickening of the wall of the right/ascending colon by the cecum with surrounding stranding/inflammation concerning for inflammatory neoplasm. Due to mild distention diffusely at this level, differential diagnosis includes lymphoma versus nonspecific colitis. There is scattered diverticulosis throughout the remainder of the colon with no signs of diverticulitis. PELVIS: Appendix: The appendix is normal. Bladder: Unremarkable. No stones. Reproductive: Mild prostate enlargement. ABDOMEN and PELVIS: Intraperitoneal space: Unremarkable. No free air. No significant fluid collection. Bones/joints: Degenerative disease of the spine with grade 1 anterolisthesis of L5 on S1 and bilateral pars defect of L5. No acute fracture. No dislocation. Soft tissues: Bilateral fat-containing inguinal hernias, left larger than right. Vasculature: Calcified atherosclerotic disease of aorta with no aneurysm. Lymph nodes: Unremarkable. No enlarged lymph nodes. IMPRESSION: 1. Focal colitis versus inflammatory neoplasm versus lymphoma involving the cecum/right ascending colon. Clinical correlation recommended and if indicated, follow-up with colonoscopy when clinically feasible and following treatment/resolution of symptoms. 2. Status post cholecystectomy, otherwise unremarkable abdominal viscera. Electronically signed by: Jennifer Wells MD 10/29/23 01:52 AM Discharge Plan Visit Data Chief Complaint: Abdominal Pain Stated Complaint: CHEST/ABD PAIN, HIGH BLOOD SUGAR, SHAKEY ED Provider: Joanne Owusu Discharge Problem: Colitis Patient Disposition: Admitted As Inpatient Discharge Instructions Interventions: ED Discharge Assessment Last Done: 10/29/23 03:41
--- NOTE | 2023-10-29 01:53 | CT Scan Report ---
Exam(s): CT ABDOMEN + PELVIS Without Contrast EXAM: CT Abdomen and Pelvis Without Intravenous Contrast CLINICAL HISTORY: Reason for exam: lower abd pain, WBC, elevated creat. TECHNIQUE: Axial computed tomography images of the abdomen and pelvis without intravenous contrast. CTDI is 26.55 mGy and DLP is 1302.8 mGy-cm. Automated exposure control was utilized for the study. A dose lowering technique was utilized adhering to the principles of ALARA. COMPARISON: 07/03/2021. FINDINGS: Lung bases: Minimal bilateral multifocal atelectasis. Heart: Unremarkable. No cardiomegaly. No significant pericardial effusion. Normal cardiac size with coronary artery calcifications. ABDOMEN: Liver: Unremarkable. Gallbladder and bile ducts: Status post cholecystectomy. No ductal dilation. Pancreas: Unremarkable. No ductal dilation. Spleen: Unremarkable. No splenomegaly. Adrenals: Unremarkable. No mass. Kidneys and ureters: Right lower pole simple cyst measuring 12 mm. Otherwise normal right kidney. Normal left kidney. No obstructing stones. No hydronephrosis. Stomach and bowel: Focal area of thickening of the wall of the right/ascending colon by the cecum with surrounding stranding/inflammation concerning for inflammatory neoplasm. Due to mild distention diffusely at this level, differential diagnosis includes lymphoma versus nonspecific colitis. There is scattered diverticulosis throughout the remainder of the colon with no signs of diverticulitis. PELVIS: Appendix: The appendix is normal. Bladder: Unremarkable. No stones. Reproductive: Mild prostate enlargement. ABDOMEN and PELVIS: Intraperitoneal space: Unremarkable. No free air. No significant fluid collection. Bones/joints: Degenerative disease of the spine with grade 1 anterolisthesis of L5 on S1 and bilateral pars defect of L5. No acute fracture. No dislocation. Soft tissues: Bilateral fat-containing inguinal hernias, left larger than right. Vasculature: Calcified atherosclerotic disease of aorta with no aneurysm. Lymph nodes: Unremarkable. No enlarged lymph nodes. IMPRESSION: 1. Focal colitis versus inflammatory neoplasm versus lymphoma involving the cecum/right ascending colon. Clinical correlation recommended and if indicated, follow-up with colonoscopy when clinically feasible and following treatment/resolution of symptoms. 2. Status post cholecystectomy, otherwise unremarkable abdominal viscera. Electronically signed by: Jennifer Wells MD 10/29/23 01:52 AM
--- NOTE | 2023-10-29 02:27 | History & Physical Report ---
Date of Service October 29, 2023 Assessment & Plan (1) Abdominal pain: Plan: - CT A&P with Focal colitis versus inflammatory neoplasm versus lymphoma involving the cecum/right ascending colon - Differential infectious vs ischemic vs neoplasm - Leukocytosis, hemodynamically stable - s/p 1 dose Zosyn in ED- was given at 0330- would be due for next dose at 1130; wait for f/u CT to hopefully give more clarity- if concern for infectious continue antibiotics - peripheral smear pending - CT A &P with oral and IV contrast pending - Pain regimen with Tylenol prn; Dilaudid 0.25mg pain 7-8, 0.5mg 9-10 (2) Type 2 diabetes mellitus with obesity: Plan: - Hold home oral medications - Lantus 15 BID with SSI coverage (3) Severe obstructive sleep apnea: Plan: - On JAYJAY, continue qHS (4) GERD (gastroesophageal reflux disease): Plan: - continue PPI (5) CKD stage G3a/A3, GFR 45-59 and albumin creatinine ratio >300 mg/g: Plan: - creatine= 1.89 on admission, baseline around 1.7 - likely prerenal - hold losartan - NS started in the ED- will continue for x 1L total - repeat qAM (6) Hyperlipidemia: Plan: - continue statin, fenofibrate (7) Hypertension: Plan: - hold losartan give elevated creatine and mild hypotension on admision - has furosemide prn for edema; held on admission (8) History of stroke: Plan: - continue aspirin (9) Depression as late effect of cerebrovascular accident (CVA): Plan: - continue Ativan prn Plan Diet: DM2, Heart Healthy- NPO pending results of CT VTE Prophylaxis: SCD, defer chemical pending results CT Code: Full History of Present Illness Primary Care Provider: Lizbeth Duran MD 68 year old male with a past medical history of DM2, CKD 3, JAYJAY on CPAP, GERD, CAD s/p 4v CABG 2017, BPH, HLD, HTN, lung cancer s/p PANFILO lobectomy 2012 presenting with abdominal pain. States that he has had intermittent right/mid lower abdominal pain for the past month. Acutely worse over the past 2 days. Does not radiate. Mild at rest, worse when he pushes on it/moves. Denies change in bowel movements- diarrhea, constipation. Last BM yesterday evening. Denies blood in stools, dark stools, nausea/vomiting. Last colonoscopy in 2019 -two TAs - 5y f/u due 06/2024. Denies fever. ED Course Significant for: Focal colitis versus inflammatory neoplasm versus lymphoma involving the cecum/right ascending colon. leukocytosis= 16. Creatine= 1.89 (baseline 1.7) Allergies Allergy/AdvReac Type Severity Reaction Status Date / Time No Known Allergies AdvReac U Verified 10/29/23 01:53 Home Medications Medication Instructions Recorded Confirmed Type aspirin 81 mg tablet,delayed 81 mg PO QAM ##0 08/08/14 10/29/23 History release acetaminophen 500 mg tablet 1,000 mg PO Q6H PRN Pain 03/01/19 10/29/23 History albuterol sulfate 90 mcg/actuation 2 puff inhalation QID PRN Wheezing 03/01/19 10/29/23 History aerosol inhaler (ProAir HFA) nitroglycerin 0.4 mg sublingual 0.4 mg sublingual UD PRN Chest Pain 03/01/19 10/29/23 History tablet (Nitrostat) vitamins A,C,J-wlfi-sascmp 2,148 1 tab PO BID 03/01/19 10/29/23 History mcg-113 mg-45 mg-17.4 mg tablet (PreserVision AREDS) cetirizine 10 mg tablet (Zyrtec) 10 mg PO QAM 05/03/21 10/29/23 History multivitamin 1 tab PO QAM 02/28/23 10/29/23 History losartan 50 mg tablet 50 mg PO QAM #90 tabs 03/03/23 10/29/23 Rx lorazepam 0.5 mg tablet 0.5 mg PO DAILY PRN Anxiety #30 05/19/23 10/29/23 Rx tabs azelastine 137 mcg (0.1 %) nasal 2 spray intranasal DAILY #30 mL 06/24/23 10/29/23 Rx spray aerosol tirzepatide 7.5 mg/0.5 mL 7.5 mg (0.5 mL) subcut .ONCE 08/18/23 10/29/23 Rx subcutaneous pen injector WEEKLY #6 mL (Mounjaro) empagliflozin 25 mg tablet 25 mg PO QAM #90 tabs 08/20/23 10/29/23 Rx (Jardiance) omeprazole 20 mg tablet,delayed 20 mg PO QAM #90 tabs 08/28/23 10/29/23 Rx release furosemide 20 mg tablet 20 mg PO DAILY PRN edema #90 tabs 09/05/23 10/29/23 Rx rosuvastatin 40 mg tablet 40 mg PO QAM #90 tabs 10/15/23 10/29/23 Rx fenofibrate nanocrystallized 48 mg 48 mg PO QAM #90 tabs 10/16/23 10/29/23 Rx tablet insulin lispro protamine-lispro 40 - 55 unit subcut BID 10/29/23 10/29/23 History 100 unit/mL (75-25) subcutaneous pen (Humalog Mix 75-25 KwikPen) sildenafil (pulm.hypertension) 20 20 mg PO DIRECTED PRN Sexual 10/29/23 10/29/23 History mg tablet Activity triamcinolone acetonide 0.1 % 1 applic topical BID PRN Skin 10/29/23 10/29/23 History topical ointment Irritation amoxicillin 875 mg-potassium 1 tab PO BID #14 tabs 10/30/23 Rx clavulanate 125 mg tablet tramadol 50 mg tablet 50 mg PO Q8H PRN pain #20 tabs 10/30/23 Rx Past Med/Surg History Medical History (Updated 10/30/23 @ 17:08 by Alexsander Medel MD) Encounter for pre-operative examination 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 2017 BPH (benign prostatic hyperplasia) Elevated PSA Surgical History H/O knee surgery removal of calcium deposit Hx of colonoscopy Hx of sinus surgery Status post cardiac surgery quadruple bypass 2016 Hx of cholecystectomy History of lung surgery left lung was removed Family History Father Prostate cancer Mother Myocardial infarction Brother Myocardial infarction Lung cancer Denies family history of Ovarian cancer Breast cancer Colorectal cancer Social History Smoking Status: Never smoker Second Hand Exposure: No; Do You Dip or Chew Tobacco: No; Hx Alcohol Use: No Hx Substance Use: No Preferred Language: Occitan Communication Ability: Effective Watershed Coordinator Required: No Beliefs That Will Affect Care: None marital status: Current Living Situation: Spouse Current Living Situation Comment: lives with in 2 story house Feels Safe at Home: Yes Seatbelt Use: always Assistive Devices: None Review of Systems Review of Systems: As per above Physical Exam Physical Exam: Constitutional: well-appearing, no acute distress HEENT: NCAT, no conjunctival injection CV: regular rhythm, no murmur appreciated, extremities well-perfused, no LE edema Resp: CTABL, no wheezes/rales/rhonchi appreciated, no increased work of breathing GI: soft, nondistended, + tenderness RLQ and periumbilical, BS normoactive MSK: no gross deformities appreciated Skin: warm, dry, no rash appreciated Neuro: alert, oriented, no focal neurologic deficit appreciated Results & Data Results & Data Vital Signs (Past 12 Hours) Vital Signs Temp Pulse Resp BP Pulse Ox O2 Del Method 10/28/23 22:33 37.0 C 96 H 18 132/75 92 Room Air Supervising Physician Co-Signing Physician Notes Patient seen and examined, chart reviewed, case discussed with Dr. Downing and I agree with the assessment and plan as above. Patient is a 68yo male presenting with abdominal pain - found to have a focal ar ea of colitis vs inflammatory neoplasm vs lymphoma. Intermittent pain for the last month - acutely worse over the last 2 days. On exam he is afebrile, HD stable, NAD SKin - without rash HEENT - MMM, Neck supple Heart - +S1/S2, regular Lungs - CTA, no rales/rhonchi/wheezes Abd - soft, nondistended with normoactive BS, tenderness int he RLQ with some voluntary guarding, no rebound Ext - warm, well perfused Labs and images reviewed Admit to medical -GI consultation for colonoscopy, possible biopsy -Pain control and anti-emetics as needed -Remainder of plan as above Resident Activity Tracking Resident Involvement: Resident Care Provided Care Provided: Adult [facility]
[2023-10-29] MEDS: PIPERACILLIN/TAZOBACTAM 4.5 GM/100 ML BAG IV ONE (03:25)
[2023-10-29] MEDS ORDERED: DEXTROSE 50% 50 ML SYRINGE IV PRN (04:09)
[2023-10-29] MEDS ORDERED: CARBOHYDRATES FOR HYPOGLYCEMIA PO PRN (04:09)
[2023-10-29] MEDS ORDERED: GLUCOSE 10 TAB/TUBE PO PRN (04:09)
[2023-10-29] MEDS ORDERED: GLUCOSE 40% GEL 15 GM TUBE PO PRN (04:09)
[2023-10-29] MEDS ORDERED: LORazepam 0.5 MG TAB PO PRN (04:09)
[2023-10-29] MEDS ORDERED: GLUCAGON FOR INJ 1 MG VIAL SQ PRN (04:09)
[2023-10-29] MEDS ORDERED: oxyCODONE HCL IR 5 MG TAB (IMMEDIATE RELEASE) PO PRN (04:09)
[2023-10-29] MEDS ORDERED: HYDROmorphone INJ 0.5 MG/0.5 ML SYR IV PRN ×2 (04:11)
[2023-10-29] MEDS: ACETAMINOPHEN 500 MG TAB PO STA (05:09)
[2023-10-29] MEDS ORDERED: Nursing to Pharmacy Communication SCH ×2 (05:30→11:30)
[2023-10-29] MEDS: INSULIN ASPART PER UNIT CHARGE SC SCH ×2 (06:20→13:00)
[2023-10-29] MEDS ORDERED: INSULIN ASPART PER UNIT CHARGE SC SCH (07:30)
[2023-10-29 08:31] LABS: Albumin Globulin Ratio 1.5 (0.9-2); Albumin Level 3.8 gm/dl (3.4-5.0); BUN Creatinine Ratio 20.2 (10-20); Bilirubin,Total 0.8 mg/dl (0.2-1.0); Calcium 8.9 mg/dl (8.6-10.3); Creatinine Clr Calc Pharmacy 44.2 ml/min; Est GFR (Non-African American) 40.5 ml/min; Globulin 2.6 gm/dl (2.5-4.0); Magnesium 1.9 mg/dl (1.7-2.4); Potassium 3.1 mmol/L (3.5-5.1); Total Protein 6.4 gm/dl (6.0-8.3)
[2023-10-29 08:52] LABS: Basophils # (auto) 0.02 K/uL (0.00-0.20); Basophils % (auto) 0.1 %; Hematocrit (blood only) 40.4 % (42.0-52.0); Hemoglobin 14.1 g/dl (14.0-18.0); Immature Granulocytes # (auto) 0.07 K/uL (0.01-0.20); Immature Granulocytes % (auto) 0.5 %; Lymphocytes # (auto) 1.91 K/uL (1.20-3.40); Mean Corpuscular Hemoglobin 31.7 pg (25.0-34.0); Mean Corpuscular Hgb Conc 34.9 g/dL (32.0-36.0); Mean Corpuscular Volume 90.8 fL (80.0-100.0); Mean Platelet Volume 9.6 fL (9.4-12.4); Monocytes # (auto) 1.02 K/uL (0.11-0.59); Monocytes % (auto) 6.9 %; Neutrophils # (auto) 11.36 K/uL (1.40-6.50); Neutrophils % (auto) 77.5 %; Platelet Count 166 K/uL (130-400); RDW Standard Deviation 43.1 fL (36.4-46.3); Red Blood Count 4.45 M/uL (4.70-6.10); White Blood Count 14.68 K/ul (4.8-10.8)
[2023-10-29] MEDS: OPTIRAY 320 100ml IV ONE (08:53)
[2023-10-29] MEDS ORDERED: LANTUS PER UNIT CHARGE SQ SCH (09:00)
[2023-10-29] MEDS: FENOFIBRATE NANOCRYSTALLIZED 48 MG TABLET PO SCH (09:48)
[2023-10-29] MEDS: CETIRIZINE HCL 10 MG TABLET PO SCH (09:48)
[2023-10-29] MEDS: ROSUVASTATIN CALCIUM 20 MG TAB PO SCH (09:48)
[2023-10-29] MEDS: PANTOprazole 40 MG TAB PO SCH (09:49)
[2023-10-29] MEDS: ASPIRIN 81 MG ECTAB PO SCH (09:49)
--- NOTE | 2023-10-29 10:17 | CT Scan Report ---
ABDOMEN AND PELVIS CT WITH IV AND ORAL CONTRAST CT DOSE: 1372.1 mGy.cm HISTORY: Acute lower abdominal pain F/u Abnormal CT w/o contrast TECHNIQUE: Multiaxial CT images of the abdomen and pelvis were performed following the IV administrat ion of 94 cc of Optiray and oral contrast. A dose lowering technique was utilized adhering to the pr inciples of JOSE. COMPARISON STUDY: CT abdomen and pelvis of same day at 1:00 AM, CT abdomen and pelvis 07/13/2021 FINDINGS: Median sternotomy. Coronary arterial calcifications. No acute lower thoracic abnormality. N o free air. Unremarkable spleen, pancreas and adrenal glands. Cholecystectomy. Ill-defined area of sl ightly decreased attenuation within the inferior right hepatic lobe on image 124 is indeterminate, po ssibly focal fatty infiltration. Patency of the hepatic and portal veins. The liver is enlarged measu ring up to 21 cm. There is no hydronephrosis. There are a few small cysts noted within the kidneys bilaterally. Mild co rtical thinning of the kidneys. Prostamegaly. Mild bladder wall thickening. Small left greater than r ight fat filled inguinal hernias. Atherosclerosis of aorta with chronic narrowing of the supra inferi or mesenteric and renal arteries. No lymphadenopathy. No bowel obstruction. Colonic diverticulosis. No abscess. There is prominent wall thickening redemons trated involving the cecum and proximal ascending colon extending for length of approximately 10 cm w ith adjacent inflammatory stranding. Air is present within the appendix which measures up to 9 mm. No acute fracture or destructive bone lesion. Chronic L5 pars defects with grade 1 anterolisthesis. IMPRESSION: 1. Unchanged exam from the study obtained 7 hours earlier with persistent wall thickening of the cecu m and ascending colon extending for a length of approximately 10 cm with surrounding inflammatory str anding. Findings are suggestive of a nonspecific colitis, however correlation with follow-up colonosc opy is needed in order to exclude a mucosal lesion. 2. No pneumoperitoneum or abscess. 3. Mildly dilated appendix is likely reactive. Acute appendicitis considered unlikely. 4. Colonic diverticulosis. 5. Atherosclerosis with chronic narrowing of the superior and inferior mesenteric and renal arteries. 6. Additional findings as above. ACT 112: Negative or not required by law. The above report was generated using voice recognition software. It may contain grammatical, syntax o r spelling errors. Electronically signed by: Gabe Snow M.D. 10/29/2023 10:15 AM
[2023-10-29 10:54] LABS: Adenovirus F 40/41 PCR Not Detected (NotDetected); Astrovirus PCR Not Detected (NotDetected); Campylobacter PCR Not Detected (NotDetected); Cryptosporidium PCR Not Detected (NotDetected); Cyclospora cayetanensis PCR Not Detected (NotDetected); Entamoeba histolytica PCR Not Detected (NotDetected); Enteroaggregative E.coli(EAEC) Not Detected (NotDetected); Enteropathogenic E.coli (EPEC) Not Detected (NotDetected); Enterotoxigenic E.coli (ETEC) Not Detected (NotDetected); Giardia lamblia PCR Not Detected (NotDetected); Norovirus GI/GII PCR Not Detected (NotDetected); Plesiomonas shigelloides PCR Not Detected (NotDetected); Rotavirus A PCR Not Detected (NotDetected); Salmonella PCR Not Detected (NotDetected); Sapovirus PCR Not Detected (NotDetected); Shiga-like Toxin E.coli (STEC) Not Detected (NotDetected); Shigella/Enteroinvasive E.coli Not Detected (NotDetected); Vibrio cholerae PCR Not Detected (NotDetected); Vibrio species PCR Not Detected (NotDetected); Yersinia enterocolitica PCR Not Detected (NotDetected)
--- NOTE | 2023-10-29 15:24 | Gastrointestinal Consultation ---
Date of Consultation October 29, 2023 Assessment & Plan (1) Abnormal CT scan, colon: -Clear liquids today, Keep NPO after midnight with the exception of bowel prep -Colonoscopy on 10/30/23 for further evaluation Supervising Physician Co-Signing Physician Notes Agree with MAXIMILIANO Story as above Interviewed and examined patient and agree with above Abd: Soft, NT, ND, +BS Continue current therapy and supportive care Clear liquid diet, Bowel prep tonight, then NPO for colonoscopy tomorrow. History of Present Illness Reason for Consultation: Abnormal CT colon Attending Physician: Shravan Blank History of Present Illness Patient is a 68 yo male with PMH of BPH, DM2, JAYJAY, GERD, CKD3, Obesity, CAD, HTN, and HLD. Patient presented to the ED for right sided abdominal pain that has been ongoing but exacerbated after doing physical activity over the past several days. He had a CT scan in the ED that showed an abnormality in the cecum/right sided colon that was unclear whether it was colitis, neoplasm, vs lymphoma. He last had a colonoscopy in 2018 with [facility] that showed 2 tubular adenomas and diverticulosis. He denies diarrhea, GI bleeding, constipation or other GI changes. Stool PCR negative. No significant laboratory abnormalities with the exception of WBC count of 14,680. H/H 14.1/40.4. Allergies Allergy/AdvReac Type Severity Reaction Status Date / Time No Known Allergies AdvReac U Verified 10/29/23 01:53 Home Medications Medication Instructions Recorded Confirmed Type aspirin 81 mg tablet,delayed 81 mg PO [facility] ##0 08/08/14 10/29/23 History release acetaminophen 500 mg tablet 1,000 mg PO Q6H PRN Pain 03/01/19 10/29/23 History albuterol sulfate 90 mcg/actuation 2 puff inhalation QID PRN Wheezing 03/01/19 10/29/23 History aerosol inhaler (ProAir HFA) nitroglycerin 0.4 mg sublingual 0.4 mg sublingual UD PRN Chest Pain 03/01/19 10/29/23 History tablet (Nitrostat) vitamins A,C,C-nnli-xvfyjx 2,148 1 tab PO BID 03/01/19 10/29/23 History mcg-113 mg-45 mg-17.4 mg tablet (PreserVision AREDS) cetirizine 10 mg tablet (Zyrtec) 10 mg PO QAM 05/03/21 10/29/23 History multivitamin 1 tab PO QAM 02/28/23 10/29/23 History losartan 50 mg tablet 50 mg PO QAM #90 tabs 03/03/23 10/29/23 Rx lorazepam 0.5 mg tablet 0.5 mg PO DAILY PRN Anxiety #30 05/19/23 10/29/23 Rx tabs azelastine 137 mcg (0.1 %) nasal 2 spray intranasal DAILY #30 mL 06/24/23 10/29/23 Rx spray aerosol tirzepatide 7.5 mg/0.5 mL 7.5 mg (0.5 mL) subcut .ONCE 08/18/23 10/29/23 Rx subcutaneous pen injector WEEKLY #6 mL (Missy) empagliflozin 25 mg tablet 25 mg PO QAM #90 tabs 08/20/23 10/29/23 Rx (Jardiance) omeprazole 20 mg tablet,delayed 20 mg PO QAM #90 tabs 08/28/23 10/29/23 Rx release furosemide 20 mg tablet 20 mg PO DAILY PRN edema #90 tabs 09/05/23 10/29/23 Rx rosuvastatin 40 mg tablet 40 mg PO QAM #90 tabs 10/15/23 10/29/23 Rx fenofibrate nanocrystallized 48 mg 48 mg PO QAM #90 tabs 10/16/23 10/29/23 Rx tablet insulin lispro protamine-lispro 40 - 55 unit subcut BID 10/29/23 10/29/23 History 100 unit/mL (75-25) subcutaneous pen (Humalog Mix 75-25 KwikPen) sildenafil (pulm.hypertension) 20 20 mg PO DIRECTED PRN Sexual 10/29/23 10/29/23 History mg tablet Activity triamcinolone acetonide 0.1 % 1 applic topical BID PRN Skin 10/29/23 10/29/23 History topical ointment Irritation Patient History Medical History BPH with obstruction/lower urinary tract symptoms Type 2 diabetes mellitus with chronic kidney disease Hx-TIA (transient ischemic attack) CKD stage G3a/A3, GFR 45-59 and albumin creatinine ratio >300 mg/g Obstructive sleep apnea Type 2 diabetes mellitus CAD (coronary artery disease) Lung neoplasm BPH (benign prostatic hyperplasia) Elevated PSA Surgical History H/O knee surgery Hx of colonoscopy Hx of sinus surgery Status post cardiac surgery Hx of cholecystectomy History of lung surgery Family History Father Prostate cancer Mother Myocardial infarction Brother Myocardial infarction Lung cancer Denies family history of Ovarian cancer Breast cancer Colorectal cancer Social History Smoking Status: Never smoker Second Hand Exposure: No; Do You Dip or Chew Tobacco: No; Hx Alcohol Use: No Hx Substance Use: No Preferred Language: Ugandan Communication Ability: Effective Consumer Affairs Director Required: No Beliefs That Will Affect Care: None marital status: Current Living Situation: Spouse Current Living Situation Comment: lives with in 2 story house Other Information That Helps Us Care for You: No Feels Safe at Home: Yes Safety Concerns: Feels Safe At This Time Seatbelt Use: always Assistive Devices: None Review of Systems Constitutional: no fever and no chills Respiratory: no cough and no dyspnea Cardiovascular: no chest pain Gastrointestinal: no change in bowel habits, no diarrhea/loose stools and no blood in stools Physical Exam Constitutional: well developed Respiratory: normal respiratory effort Gastrointestinal (Abdomen): Percussion/Palpation: + abdomen tender and abdomen soft Results & Data Vital Signs (Past 12 Hours) Vital Signs Temp Pulse Resp BP BP Pulse Ox O2 Del Method 10/29/23 14:22 36.7 C 79 17 102/61 95 Room Air 10/29/23 07:28 37.6 C H 80 16 111/66 94 Room Air 10/29/23 03:45 36.8 C 81 18 115/62 94 Room Air PG Care Time/CCT Total # of Minutes Spent Total Time Spent with Patient: Total time spent is greater than 50% in coordination of care (as documented) at patient's floor/unit and/or counseling patient: Coding Level of Care Code 22024 INT INP/OBS CARE 3/75MIN Diagnoses Abnormal CT scan, colon R93.3
--- NOTE | 2023-10-29 16:18 | Electrocardiogram Report ---
Test Reason : Blood Pressure : / mmHG Vent. Rate : 088 BPM Atrial Rate : 088 BPM P-R Int : 168 ms QRS Dur : 118 ms QT Int : 352 ms P-R-T Axes : 000 -06 037 degrees QTc Int : 425 ms Normal sinus rhythm Poor R wave progression, consider anterior WA vs. lead placement vs. LVH Abnormal ECG When compared with ECG of 25-FEB-2023 12:44, No significant change was found Confirmed by Cristobal Alston ([id number]) on 10/29/2023 4:18:29 PM Referred By: REFERRED SELF Confirmed By:Cristobal Alston
[2023-10-29] MEDS: POTASSIUM CHLORIDE CRTAB 20 MEQ TABCR PO STA (17:40)
[2023-10-29] MEDS: PIPERACILLIN/TAZOBACTAM 4.5 GM in DEXTROSE 5% MINI-B 100 ML IV SCH ×2 (17:58→23:57)
[2023-10-29] MEDS: LAVAGE SOLUTION 4000ML PO SCH (18:04)
[2023-10-29] MEDS ORDERED: ACETAMINOPHEN 500 MG TAB PO PRN (21:01)
[2023-10-29] MEDS: ACETAMINOPHEN 500 MG TAB PO ONE (21:15)
[2023-10-29] MEDS: LANTUS PER UNIT CHARGE SQ SCH (21:15)
[2023-10-30] MEDS: INSULIN ASPART PER UNIT CHARGE SC SCH (00:12)
[2023-10-30 07:22] LABS: Hematocrit (blood only) 42.2 % (42.0-52.0); Hemoglobin 14.5 g/dl (14.0-18.0); Mean Corpuscular Hemoglobin 31.5 pg (25.0-34.0); Mean Corpuscular Hgb Conc 34.4 g/dL (32.0-36.0); Mean Corpuscular Volume 91.5 fL (80.0-100.0); Mean Platelet Volume 9.7 fL (9.4-12.4); Platelet Count 172 K/uL (130-400); RDW Coefficient of Variation 13.1 % (11.5-14.5); RDW Standard Deviation 43.7 fL (36.4-46.3); Red Blood Count 4.61 M/uL (4.70-6.10); White Blood Count 13.18 K/ul (4.8-10.8)
[2023-10-30 07:56] LABS: BUN Creatinine Ratio 13.3 (10-20); C Reactive Protein 13.09 mg/dl (0-0.5); Calcium 9.2 mg/dl (8.6-10.3); Creatinine Clr Calc Pharmacy 44.7 ml/min; Est GFR (African American) 47.7 ml/min; Est GFR (Non-African American) 41.1 ml/min; Potassium 3.6 mmol/L (3.5-5.1)
--- NOTE | 2023-10-30 09:20 | History & Physical Bridge Note ---
Date of Service October 30, 2023 History & Physical Bridge Note I have examined the patient, reviewed the History & Physical and in the interval since the performance of the History & Physical I have noted the following changes of clinical significance: no changes noted Patient denies any new changes to his abdominal pain. He completed a bowel prep with good compliance. He has been NPO. H/H 14.5/42.2. Keep NPO & proceed with colonoscopy today. Supervising Physician Co-Signing Physician Notes Agree with MAXIMILIANO Story as above Abd: Soft, NT, ND, +BS Continue current therapy and supportive care Proceed with colonoscopy now
--- NOTE | 2023-10-30 09:31 | Hospitalist Progress Note ---
Date of Service October 30, 2023 Assessment & Plan (1) Abdominal pain: Plan: - CT A&P with Focal colitis versus inflammatory neoplasm versus lymphoma involving the cecum/right ascending colon -tentative colonoscopy after prep -remains on zosyn - Pain regimen with Tylenol prn; Dilaudid 0.25mg pain 7-8, 0.5mg 9-10 (2) Type 2 diabetes mellitus with obesity: Plan: - Hold home oral medications - Lantus 15 BID with SSI coverage (3) CKD stage G3a/A3, GFR 45-59 and albumin creatinine ratio >300 mg/g: Plan: - creatine= 1.89 on admission, baseline around 1.7 - hold losartan (4) Hypertension: Plan: - hold losartan give elevated creatine and mild hypotension on admision - has furosemide prn for edema; held on admission for cardiovascular risk reduction(previous CVA) continue atorvastatin, hold aspirin for colonscopy and restart when able (5) Severe obstructive sleep apnea: Plan: - On JAYJAY, continue qHS Plan VTE Prophylaxis: SCD, defer chemical pending colonoscopy Code: Full Admission and Anticipated Discharge Date Admission Date: October 29, 2023 Results & Data Results & Data Vital Signs (Past 12 Hours) Vital Signs Temp Pulse Resp BP Pulse Ox O2 Del Method 10/30/23 07:29 99.1 F 80 17 99/59 L 92 Room Air PG Care Time/CCT Total # of Minutes Spent Total Time Spent with Patient: Total time spent is greater than 50% in coordination of care (as documented) at patient's floor/unit and/or counseling patient: Coding Diagnoses Abdominal pain R10.9 Type 2 diabetes mellitus with obesity E11.69; E66.9 CKD stage G3a/A3, GFR 45-59 and albumin creatinine ratio >300 mg/g N18.31 Hypertension I10 Severe obstructive sleep apnea G47.33
--- NOTE | 2023-10-30 09:54 | Anesthesiology Consultation ---
Date of Service October 30, 2023 Assessment & Plan (1) Encounter for pre-operative examination: Chart Review Chart Review: Acceptable Risk for Surgery, Patient NOT seen in Pre Admission Testing and entry level sales associate initiated Consults Requested none Proposed Anesthesia Anesthesia Type: MAC History Surgery Operation Date: 10/30/23 16:30 Proposed Procedures p Colonoscopy Dr. Guilherme Marcelo Case, DO Height/Weight Height: 5 ft 7 in Weight: 91.7 kg Allergies Allergy/AdvReac Type Severity Reaction Status Date / Time No Known Allergies AdvReac U Verified 10/29/23 01:53 Medications Home Medications Medication Instructions Recorded Confirmed Last Taken aspirin 81 mg tablet,delayed 81 mg PO QAM ##0 08/08/14 10/29/23 10/28/23 release acetaminophen 500 mg tablet 1,000 mg PO Q6H PRN Pain 03/01/19 10/29/23 03/04/23 albuterol sulfate 90 mcg/actuation 2 puff inhalation QID PRN Wheezing 03/01/19 10/29/23 Unknown aerosol inhaler (ProAir HFA) nitroglycerin 0.4 mg sublingual 0.4 mg sublingual UD PRN Chest Pain 03/01/19 10/29/23 Unknown tablet (Nitrostat) vitamins A,C,R-ukws-vwyqvo 2,148 1 tab PO BID 03/01/19 10/29/23 10/28/23 mcg-113 mg-45 mg-17.4 mg tablet (PreserVision AREDS) cetirizine 10 mg tablet (Zyrtec) 10 mg PO QAM 05/03/21 10/29/23 10/28/23 multivitamin 1 tab PO QAM 02/28/23 10/29/23 10/28/23 losartan 50 mg tablet 50 mg PO QAM #90 tabs 03/03/23 10/29/23 10/28/23 lorazepam 0.5 mg tablet 0.5 mg PO DAILY PRN Anxiety #30 05/19/23 10/29/23 Unknown tabs azelastine 137 mcg (0.1 %) nasal 2 spray intranasal DAILY #30 mL 06/24/23 10/29/23 10/28/23 spray aerosol tirzepatide 7.5 mg/0.5 mL 7.5 mg (0.5 mL) subcut .ONCE 08/18/23 10/29/23 Unknown subcutaneous pen injector WEEKLY #6 mL (Mounjaro) empagliflozin 25 mg tablet 25 mg PO QAM #90 tabs 08/20/23 10/29/23 10/28/23 (Jardiance) omeprazole 20 mg tablet,delayed 20 mg PO QAM #90 tabs 08/28/23 10/29/23 10/28/23 release furosemide 20 mg tablet 20 mg PO DAILY PRN edema #90 tabs 09/05/23 10/29/23 Unknown rosuvastatin 40 mg tablet 40 mg PO QAM #90 tabs 10/15/23 10/29/23 10/28/23 fenofibrate nanocrystallized 48 mg 48 mg PO QAM #90 tabs 10/16/23 10/29/23 10/28/23 tablet insulin lispro protamine-lispro 40 - 55 unit subcut BID 10/29/23 10/29/23 10/28/23 100 unit/mL (75-25) subcutaneous pen (Humalog Mix 75-25 KwikPen) sildenafil (pulm.hypertension) 20 20 mg PO DIRECTED PRN Sexual 10/29/23 10/29/23 Unknown mg tablet Activity triamcinolone acetonide 0.1 % 1 applic topical BID PRN Skin 10/29/23 10/29/23 Unknown topical ointment Irritation Active Medications Generic Name Dose Route Start Last Admin Trade Name Freq PRN Reason Stop Dose Admin Aspirin 81 mg 10/29/23 09:00 10/30/23 07:28 Aspirin 81 Mg Ectab PO 11/28/23 08:59 Not Given QAM ALBERTO Cetirizine HCl 10 mg 10/29/23 09:00 10/30/23 07:28 Cetirizine Hcl 10 Mg Tablet PO 11/28/23 08:59 Not Given QAM ALBERTO Fenofibrate 48 mg 10/29/23 09:00 10/30/23 07:28 Fenofibrate Nanocrystallized 48 Mg Tablet PO 11/28/23 08:59 Not Given QAM ALBERTO Piperacillin Sod/Tazobactam 100 mls @ 25 mls/hr 10/29/23 23:00 10/30/23 06:05 Sod 4.5 gm/ Dextrose IV 10/31/23 22:59 25 mls/hr Q8H ALBERTO Administration Protocol Insulin Aspart 0 units 10/30/23 00:00 10/30/23 06:05 Insulin Aspart Per Unit Charge SC 11/29/23 00:00 1 units Q6 ALBERTO Administration Insulin Glargine 15 units 10/29/23 21:00 10/30/23 08:47 Lantus Per Unit Charge SQ 11/28/23 20:59 7 units BID ALBERTO Administration Pantoprazole Sodium 40 mg 10/29/23 09:00 10/30/23 07:28 Pantoprazole 40 Mg Tab PO 11/28/23 08:59 Not Given QAM ALBERTO Rosuvastatin Calcium 40 mg 10/29/23 09:00 10/30/23 07:28 Rosuvastatin Calcium 20 Mg Tab PO 11/28/23 08:59 Not Given QAM ALBERTO Past Medical History Medical History (Updated 10/30/23 @ 09:56 by Scott Andrade MD) Encounter for pre-operative examination 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 2018 BPH (benign prostatic hyperplasia) Elevated PSA Past Family History Family History Father Prostate cancer Mother Myocardial infarction Brother Myocardial infarction Lung cancer Denies family history of Ovarian cancer Breast cancer Colorectal cancer Past Surgical History Surgical History H/O knee surgery removal of calcium deposit Hx of colonoscopy Hx of sinus surgery Status post cardiac surgery quadruple bypass 2016 Hx of cholecystectomy History of lung surgery left lung was removed Social History Smoking Status: Never smoker Do You Dip or Chew Tobacco: No Hx Alcohol Use: No Hx Substance Use: No substance use type: does not use Physical Exam Vital Signs Last Vital Signs Temp 37.3 C 10/30/23 07:29 Pulse 80 10/30/23 07:29 Resp 17 10/30/23 07:29 BP 99/59 L 10/30/23 07:29 Pulse Ox 92 10/30/23 07:29 O2 Del Method Room Air 04/25/24 07:29 Testing Laboratory Results 10/30/23 06:26 10/30/23 06:26 Urine Color Yellow 10/28/23 22:43 Urine Appearance Clear (Clear) 10/28/23 22:43 Urine pH 5.0 (4.5-7.5) 10/28/23 22:43 Ur Specific [place] 1.020 (1.000-1.030) 10/28/23 22:43 Urine Protein Negative (Negative) 10/28/23 22:43 Urine Glucose (UA) 3+ (Negative) H 10/28/23 22:43 Urine Ketones Negative (Negative) 10/28/23 22:43 Urine Nitrite Negative (Negative) 10/28/23 22:43 Ur Leukocyte Esterase Negative (Negative) 10/28/23 22:43 Urine WBC (Auto) 0-5 /hpf (0-5) 10/28/23 22:43 Urine RBC (Auto) 0-2 /hpf (0-2) 10/28/23 22:43 U Hyaline Cast (Auto) 0-2 /lpf (0-2) 10/28/23 22:43 U Epithel Cells (Auto) 0-2 /hpf (0-2) 10/28/23 22:43 Urine Bacteria (Auto) None Seen (None Seen) 10/28/23 22:43 10/30/23 10/30/23 05:54 00:01 POC Glucose 158 H 153 H Electrocardiogram Date: 10/29/23 Test Reason : Blood Pressure : / mmHG Vent. Rate : 088 BPM Atrial Rate : 088 BPM P-R Int : 168 ms QRS Dur : 118 ms QT Int : 352 ms P-R-T Axes : 000 -06 037 degrees QTc Int : 425 ms Normal sinus rhythm Poor R wave progression, consider anterior NM vs. lead placement vs. LVH Abnormal ECG When compared with ECG of 25-FEB-2023 12:44, No significant change was found Confirmed by Cristobal Alston ([id number]) on 10/29/2023 4:18:29 PM Chest X-Ray Date: 08/01/22 XR chest 2V PA/lateral HISTORY: R05.8 - Other specified cough COMPARISON: Chest 06/15/2021. FINDINGS: No pneumothorax. No pleural effusions. The heart is normal in size. There are postoperative changes. Stable bilateral hilar prominence. Stable linear scarlike density in mild elevation left hemidiaphragm. This favors chronic scarring. Otherwise, no new focal lung consolidations to suggest a pneumonia. No evidence for pulmonary edema. Mild anterior wedging at the thoracolumbar junction remain stable and is likely chronic. IMPRESSION: No significant change compared to the prior study. No acute process.
--- NOTE | 2023-10-30 13:04 | GI REPORT ---
Patient Name: Ang Handy Procedure Date: 10/30/2023 12:40 PM Date of : 1955 Admit Type: Inpatient Age: 68 Gender: Male Attending MD: Sumeet Vanegas DO, Procedure: Colonoscopy Providers: Sumeet Vanegas DO Referring MD: Alexsander Medel MD Indications: Abdominal pain in the right lower quadrant, Rectal bleeding, Abnormal CT of the GI tract Medicines: Monitored Anesthesia Care Complications: No immediate complications. Estimated Blood Loss: Estimated blood loss: none. Procedure: Pre-Anesthesia Assessment: - Prior to the procedure, a History and Physical was performed, and patient medications and allergies were reviewed. The patient's tolerance of previous anesthesia was also reviewed. The risks and benefits of the procedure and the sedation options and risks were discussed with the patient. All questions were answered, and informed consent was obtained. Prior Anticoagulants: The patient has taken no anticoagulant or antiplatelet agents except for aspirin. ASA Grade Assessment: III - A patient with severe systemic disease. After reviewing the risks and benefits, the patient was deemed in satisfactory condition to undergo the procedure. After I obtained informed consent, the scope was passed under direct vision. Throughout the procedure, the patient's blood pressure, pulse, and oxygen saturations were monitored continuously. The Scope was introduced through the anus and advanced to the terminal ileum. The colonoscopy was performed without difficulty. The patient tolerated the procedure well. The quality of the bowel preparation was good. The terminal ileum, ileocecal valve, appendiceal orifice, and rectum were photographed. Findings: The perianal and digital rectal examinations were normal. A localized area of severely congested, erythematous and ulcerated mucosa was found in the cecum. Biopsies were taken with a cold forceps for histology. Multiple small-mouthed diverticula were found in the sigmoid colon. Non-bleeding internal hemorrhoids were found during retroflexion. The hemorrhoids were small. Impression: - Congested, erythematous and ulcerated mucosa in the cecum. Biopsied. - Diverticulosis in the sigmoid colon. - Non-bleeding internal hemorrhoids. Recommendation: - Return patient to hospital benites for ongoing care. - Advance diet as tolerated. - Continue present medications. - Repeat colonoscopy for surveillance based on pathology results. Sumeet Vanegas DO 10/30/2023 1:04:14 PM This report has been signed electronically. Note Initiated On: 10/30/2023 12:40 PM Number of Addenda: 0 I attest to the content of the Intraoperative Record and orders documented therein, exceptions below {[id number]}
[2023-10-30] MEDS: ONDANSETRON INJ 2 MG/ML 2 ML VIAL ONE (13:54)
[2023-10-30] MEDS: MIDAZOLAM HCL 1 MG/ML 2ML VIAL ONE (13:54)
[2023-10-30] MEDS: SODIUM CHLORIDE 0.9% 500 ML IV SCH (13:54)
[2023-10-30] MEDS: PROPOFOL IV EMULSION 10 MG/ML 20 ML VIAL IV ONE ×2 (13:54)
[2023-10-30] MEDS: LIDOCAINE 2% 2 ML VIAL/AMP(20MG/ML) INFIL ONE (13:54)
--- NOTE | 2023-10-30 14:21 | Anesthesiology Progress Note ---
Date of Service October 30, 2023 Anesthesia Post Procedure Vital Signs Vital Signs: Temp Pulse Resp BP Pulse Ox O2 Del Method 10/30/23 13:33 71 18 129/70 97 Room Air 10/30/23 13:18 73 16 122/67 99 Room Air 10/30/23 13:03 72 18 97/60 L 94 Room Air 10/30/23 11:28 36.8 C 81 16 137/68 94 Room Air 10/30/23 07:29 37.3 C 80 17 99/59 L 92 Room Air 10/29/23 20:40 37.0 C 82 16 119/65 95 Room Air 10/29/23 14:22 36.7 C 79 17 102/61 95 Room Air Pain Intensity Lower Abdomen: Pain Intensity: 2 Transfer of Care Handoff Completed per policy Notes Mental Status: alert / awake / arousable and participated in evaluation Patient Amnestic to Procedure: Yes Nausea / Vomiting: adequately controlled Pain: adequately controlled Airway Patency, RR, SpO2: stable & adequate BP & HR: stable & adequate Hydration State: stable & adequate Anesthetic Complications: no major complications apparent
[2023-10-30] MEDS ORDERED: Nursing to Pharmacy Communication SCH (16:00)
[2023-10-30] MEDS ORDERED: INSULIN ASPART PER UNIT CHARGE SC SCH (16:30)
--- NOTE | 2023-10-30 17:38 | Discharge Summary ---
Discharge Summary Date of Service October 30, 2023 Notes For Next Care Provider Pt did have biopsy and path pending at discharge pt elected to go home, will have liquid diet, augmenting and ultram Admission HPI Per Admitting Provider 68 year old male with a past medical history of DM2, CKD 3, JAYJAY on CPAP, GERD, CAD s/p 4v CABG 2017, BPH, HLD, HTN, lung cancer s/p PANFILO lobectomy 2012 presenting with abdominal pain. States that he has had intermittent right/mid lower abdominal pain for the past month. Acutely worse over the past 2 days. Does not radiate. Mild at rest, worse when he pushes on it/moves. Denies change in bowel movements- diarrhea, constipation. Last BM yesterday evening. Denies blood in stools, dark stools, nausea/vomiting. Last colonoscopy in 2019 -two TAs - 5y f/u due 06/2024. Denies fever. ED Course Significant for: Focal colitis versus inflammatory neoplasm versus lymphoma involving the cecum/right ascending colon. leukocytosis= 16. Creatine= 1.89 (baseline 1.7) Principal Dx & Hospital Course #1 = Principal Diagnosis (1) Abdominal pain: - CT A&P with Focal colitis versus inflammatory neoplasm versus lymphoma involving the cecum/right ascending colon -10/30/23 colonoscopy biopsy pending, home with augmentin - (2) Type 2 diabetes mellitus with obesity: - resume home diabetic care (3) CKD stage G3a/A3, GFR 45-59 and albumin creatinine ratio >300 mg/g: - stable resume losartan (4) Hypertension: -resume losartan for cardiovascular risk reduction(previous CVA) continue atorvastatin, aspirin (5) Severe obstructive sleep apnea: - On JAYJAY, continue qHS Plan Code: Full Discharge Exam Pt seen twice with family discharged to home with recommendations for outpt follow up Updated Medication List Medication Instructions Recorded Confirmed Type aspirin 81 mg tablet,delayed 81 mg PO QAM ##0 08/08/14 10/29/23 History release acetaminophen 500 mg tablet 1,000 mg PO Q6H PRN Pain 03/01/19 10/29/23 History albuterol sulfate 90 mcg/actuation 2 puff inhalation QID PRN Wheezing 03/01/19 10/29/23 History aerosol inhaler (ProAir HFA) nitroglycerin 0.4 mg sublingual 0.4 mg sublingual UD PRN Chest Pain 03/01/19 10/29/23 History tablet (Nitrostat) vitamins A,C,T-ogqg-kefnot 2,148 1 tab PO BID 03/01/19 10/29/23 History mcg-113 mg-45 mg-17.4 mg tablet (PreserVision AREDS) cetirizine 10 mg tablet (Zyrtec) 10 mg PO QAM 05/03/21 10/29/23 History multivitamin 1 tab PO QAM 02/28/23 10/29/23 History losartan 50 mg tablet 50 mg PO QAM #90 tabs 03/03/23 10/29/23 Rx lorazepam 0.5 mg tablet 0.5 mg PO DAILY PRN Anxiety #30 05/19/23 10/29/23 Rx tabs azelastine 137 mcg (0.1 %) nasal 2 spray intranasal DAILY #30 mL 06/24/23 10/29/23 Rx spray aerosol tirzepatide 7.5 mg/0.5 mL 7.5 mg (0.5 mL) subcut .ONCE 08/18/23 10/29/23 Rx subcutaneous pen injector WEEKLY #6 mL (Mounjaro) empagliflozin 25 mg tablet 25 mg PO QAM #90 tabs 08/20/23 10/29/23 Rx (Jardiance) omeprazole 20 mg tablet,delayed 20 mg PO QAM #90 tabs 08/28/23 10/29/23 Rx release furosemide 20 mg tablet 20 mg PO DAILY PRN edema #90 tabs 09/05/23 10/29/23 Rx rosuvastatin 40 mg tablet 40 mg PO QAM #90 tabs 10/15/23 10/29/23 Rx fenofibrate nanocrystallized 48 mg 48 mg PO QAM #90 tabs 10/16/23 10/29/23 Rx tablet insulin lispro protamine-lispro 40 - 55 unit subcut BID 10/29/23 10/29/23 History 100 unit/mL (75-25) subcutaneous pen (Humalog Mix 75-25 KwikPen) sildenafil (pulm.hypertension) 20 20 mg PO DIRECTED PRN Sexual 10/29/23 10/29/23 History mg tablet Activity triamcinolone acetonide 0.1 % 1 applic topical BID PRN Skin 10/29/23 10/29/23 H istory topical ointment Irritation amoxicillin 875 mg-potassium 1 tab PO BID #14 tabs 10/30/23 Rx clavulanate 125 mg tablet tramadol 50 mg tablet 50 mg PO Q8H PRN pain #20 tabs 10/30/23 Rx Hospital Stay Data Consultations 10/29/23 01:59 ED Decision to Admit Stat 10/29/23 07:49 Consult Gastroenterology Routine Procedures Performed Operation Date: 10/30/23 16:30 Actual Procedures p Colonoscopy Biopsy Cytology - Sumeet Vanegas, DO Diagnostic Imagining Performed 10/29/23 00:08 CT abd pelvis wo con Stat 10/29/23 03:39 CT Abd and Pelvis [CT abd pelvis oral and IV con] Urgent Pending Results Patient Have Any Pending Studies at Discharge: Yes Discharge Instructions Given to Patient (Per Discharging Provider) liquid and low fiber diet, please follow up with Dr Vanegas for your biopsy results, return to the ER if fever or abdominal pain that is uncontrolled at home ok to use Tylenol for pain, will RX some Ultram if Tylenol does not work, and if that does not control please return to ER Home Health Attestation I certify that this patient is under my care and that I, or a physicians assistant manager/embalmer working with me, had a face to-face encounter that meets the home health aiyz-[id number] encounter requirements with this patient. The encounter with the patient was in whole, or in part, for the following medical condition, which is the primary reason for home health care (list medical condition): I certify that, based on my findings, the following services are medically necessary home health services: My clinical findings support the need for the above services because: Further, I certify that my clinical findings support that this patient is homebound (i.e. absences from home require considerable and taxing effort and are for medical reasons or scientology services or infrequently or of short duration when for other reasons) because: Certification for Home Health Services: Based on the above findings, I certify that this patient is confined to the home and needs intermittent long-term care, physical therapy and/or speech therapy or continues to need occupational therapy. The patient is under my care, and I have initiated the establishment of the plan of care. This patient will be followed by a physician who will periodically review the plan of care. Total Time Total Time Spent Total Time Spent (In Minutes): greater than 30 minutes to discharge Coding Level of Care Code 93097 INP/OBS DISCH >30 MIN Diagnoses Abdominal pain R10.9 Type 2 diabetes mellitus with obesity E11.69; E66.9 CKD stage G3a/A3, GFR 45-59 and albumin creatinine ratio >300 mg/g N18.31 Hypertension I10 Severe obstructive sleep apnea G47.33
--- NOTE | 2023-10-31 11:00 | Billing Data ---
Date of Service October 29, 2023 Coding Level of Care Code 12113 INT INP/OBS CARE
--- NOTE | 2023-11-07 09:19 | Coding Query ---
A supporting diagnosis is required for the test/procedure performed on this patient in order for us to be reimbursed by the patient's insurance. Please provide a supporting diagnosis for the following test/procedure listed below next to the test name along with your signature. *If there is no additional diagnosis for this patient that would support the following test/procedure please document that below next to the test/procedure. Test(s)/Procedure(s) that require a supporting diagnosis: * 54642 IADNA-DNA/RNA PROBE TQ 06-30 DIAGNOSIS: colonic mass possible neoplasm DATE OF SERVICE: 10/29/23 Provider Signature: Date: Thank you Jesús Siegel [facility] Information Management Once completed, please kindly fax back to [phone] For questions please call [phone] RICARDO
== END 2023-10-30 18:16 | disposition home or self-care (01) ==
LOC: 3W 22:30 → ED 22:30 → SUATTDRO 10-29 02:47 → 3W 10-29 03:41